=== PATIENT | female | born 1945 | race Caucasian/White ===

== ENCOUNTER 2016-09-24 21:39 | Inpatient (IN) | payer MEDICARE, OTHER ==
[~2016-09-24] VITALS: Ht 175.3 cm; Wt 101.7 kg
[~2016-09-24 21:39] MED LIST: CLON-364 PO; CYMBALTA PO; DILT360C25 PO; HYDROCHLOROTHIAZIDE PO; LISI1TAB5 PO; LOSA50TA6 PO; MELO-190 PO; OXYC-229 PO; PERCOCET PO; POTASSIUM PEG; WELLBUTRIN PO
[2016-09-24] MEDS ORDERED: PANTOPRAZOLE 80 MG in SODIUM CHLORIDE 0.9% 100 ML IV SCH (21:50)
[2016-09-24] MEDS ORDERED: PANTOPRAZOLE 40 MG IV IVPush ONE (22:00)
[2016-09-24] MEDS ORDERED: PLEASE ENTER ALLERGIES MC SCH ×2 (22:00)
[2016-09-24] MEDS ORDERED: SODIUM CHLORIDE 0.9% 1,000ML IVBOLUS ONE (22:00)
[2016-09-24] MEDS ORDERED: SODIUM CHLORIDE FLUSH 10ML SYR IVF ONE (22:00)
[2016-09-24] MEDS ORDERED: ONDANSETRON 2MG/ML, 2ML IVPush ONE (22:00)
[2016-09-24] MEDS ORDERED: PLEASE ENTER HEIGHT AND WEIGHT MC SCH (22:00)
[2016-09-24] MEDS ORDERED: HYDROmorphone 1 MG/ML, 1ML IV ONE (22:00)
[2016-09-24] MEDS ORDERED: PANTOPRAZOLE 40 MG IV ONE (22:22)
[2016-09-24 22:24] LABS: HEMATOCRIT 32.1 % (34.6-47.8); HEMOGLOBIN 10.6 g/dL (11.7-16.4)
[2016-09-24] MEDS ORDERED: MORPHINE SULFATE 4 MG/ML, 1ML IVPush PRN (22:30)
[2016-09-24 22:31] LABS: ASPARTATE AMINO TRANSFERASE 13 U/L (15-37); BLOOD UREA NITROGEN 15 mg/dL (7-18)
[2016-09-24] MEDS ORDERED: ONDANSETRON 2MG/ML, 2ML ONE (22:43)
[2016-09-24] MEDS ORDERED: HYDROmorphone 1 MG/ML, 1ML ONE (22:43)
[2016-09-24] MEDS ORDERED: CARV3.122 PO (23:10)
[2016-09-24] MEDS ORDERED: POTA20TA91 PO (23:10)
[2016-09-24] MEDS ORDERED: CITA20TA9 PO (23:10)
[2016-09-24] MEDS ORDERED: QUET100T4 PO (23:10)
[2016-09-24] MEDS ORDERED: LOSA1TAB17 PO (23:10)
[2016-09-24] MEDS ORDERED: BUPR150T6 PO (23:10)
[2016-09-24] MEDS ORDERED: CYAN500L PO (23:13)
[2016-09-24] MEDS ORDERED: NAPR500T8 PO (23:13)
[2016-09-25] MEDS ORDERED: ACETAMINOPHEN 325 MG TABLET PO PRN
[2016-09-25] MEDS ORDERED: PROMETHAZINE 25 MG/ML, 1ML IM PRN
[2016-09-25] MEDS ORDERED: BISACODYL 10 MG SUPP PR PRN
[2016-09-25] MEDS ORDERED: ONDANSETRON 2MG/ML, 2ML IVPush PRN
[2016-09-25] MEDS ORDERED: maalox/diphenh/lido/sucralfate 5 ML PO PRN (01:00)
[2016-09-25] MEDS: morphine SULFATE 10 MG/ML, 1ML IVPush PRN ×5 (01:08→16:54)
[2016-09-25] MEDS: NS + 20MEQ KCL 1,000 ML IV SCH ×3 (01:09→19:35)
[2016-09-25 04:25] LABS: HEMATOCRIT 28.9 % (34.6-47.8); HEMOGLOBIN 9.6 g/dL (11.7-16.4); WHITE BLOOD COUNT 11.2 x10^3/uL (3.4-10)
[2016-09-25 04:33] LABS: BLOOD UREA NITROGEN 14 mg/dL (7-18)
[2016-09-25] MEDS ORDERED: OXYcodone IR 5MG TABLET PO PRN (08:00)
[2016-09-25] MEDS: PANTOPRAZOLE 80 MG in SODIUM CHLORIDE 0.9% 100 ML IV SCH ×2 (08:04)
[2016-09-25] MEDS: CARVEDILOL 3.125 MG TABLET PO SCH ×2 (08:13→21:32)
[2016-09-25] MEDS: CITALOPRAM 20 MG TABLET PO SCH (08:13)
[2016-09-25] MEDS: QUETIAPINE 100MG TABLET PO SCH (08:13)
[2016-09-25] MEDS: CYANOCOBALAMIN 1,000 MCG TABLET PO SCH (08:14)
[2016-09-25] MEDS ORDERED: PRAM1.5T7 PO (08:22)
[2016-09-25] MEDS ORDERED: BUPROPION HCL 450 MG PO SCH (09:00)
[2016-09-25] MEDS ORDERED: METOPROLOL 1 MG/ML, 5ML ONE (11:09)
[2016-09-25 11:27] LABS: HEMOGLOBIN 9.2 g/dL (11.7-16.4); WHITE BLOOD COUNT 12.9 x10^3/uL (3.4-10)
[2016-09-25] MEDS ORDERED: METOPROLOL 1 MG/ML, 5ML IVPush ONE (11:30)
[2016-09-25] MEDS ORDERED: ADENOSINE 6 MG/2 ML ONE (12:51)
[2016-09-25] MEDS ORDERED: PANTOPRAZOLE 80 MG in SODIUM CHLORIDE 0.9% 100 ML IV SCH ×2 (13:30→21:00)
[2016-09-25 13:41] LABS: IS PT STATUS REG ER OR PRE ER? NO
[2016-09-25] MEDS: ORAJEL 7GM TUBE MM PRN (15:15)
[2016-09-25] MEDS ORDERED: ADENOSINE 6 MG/2 ML IVPush ONE (15:30)
[2016-09-25] MEDS: PRAMIPEXOLE 0.5MG TABLET PO SCH (16:57)
[2016-09-25] MEDS: MOVIPREP POWDER 1 PREP KIT PO SCH (16:57)
[2016-09-25] MEDS ORDERED: HYDROmorphone 1 MG/ML, 1ML IV PRN (19:30)
[2016-09-25 19:42] LABS: IS PT STATUS REG ER OR PRE ER? NO
[2016-09-25] MEDS: HYDROCHLOROTHIAZIDE 25 MG TABLET PO SCH (21:32)
[2016-09-25] MEDS: LOSARTAN 50MG TABLET PO SCH (21:33)
[2016-09-26] MEDS ORDERED: ALBUTEROL SULFATE 2.5 MG/3 ML NPPB PRN ×2 (00:30→20:30)
[2016-09-26] MEDS ORDERED: HYDROmorphone 1 MG/ML, 1ML IV PRN ×3 (01:30→20:30)
[2016-09-26] MEDS ORDERED: DILTIAZEM 5 MG/ML, 5ML IVPush ONE (02:30)
[2016-09-26] MEDS ORDERED: MAGNESIUM SULFATE PMX 2GM/50ML 50 ML IV ONE (02:30)
[2016-09-26] MEDS: MOVIPREP POWDER 1 PREP KIT PO SCH (04:02)
[2016-09-26] MEDS: NS + 20MEQ KCL 1,000 ML IV SCH ×2 (04:21→18:27)
[2016-09-26 04:29] LABS: ASPARTATE AMINO TRANSFERASE 6 U/L (15-37); BLOOD UREA NITROGEN 12 mg/dL (7-18)
[2016-09-26 04:30] LABS: HEMATOCRIT 24.2 % (34.6-47.8); HEMOGLOBIN 7.9 g/dL (11.7-16.4)
[2016-09-26] MEDS ORDERED: PROPOFOL 10 MG/ML, 50ML ONE (07:39)
[2016-09-26 07:59] VITALS: BP 118/55
[2016-09-26] MEDS ORDERED: FENTANYL PF 250 MCG/5ML ONE (08:16)
[2016-09-26] MEDS ORDERED: MIDAZOLAM 1 MG/ML, 2ML ONE (08:16)
[2016-09-26] MEDS ORDERED: POTASSIUM CHLORIDE 20 MEQ TAB.ER.PRT PO ONE (08:30)
[2016-09-26] MEDS ORDERED: METOCLOPRAMIDE 5 MG/ML, 2ML IV PRN (09:00)
[2016-09-26] MEDS ORDERED: ONDANSETRON 2MG/ML, 2ML IVPush PRN ×2 (09:00→20:30)
[2016-09-26] MEDS: BUPROPION HCL 450 MG HOMEMEDPO SCH (09:00)
[2016-09-26] MEDS ORDERED: hydrALAzine 20 MG/ML, 1ML IV PRN ×2 (09:00→20:30)
[2016-09-26] MEDS ORDERED: ACETAMINOPHEN 325 MG TABLET PO PRN (09:00)
[2016-09-26] MEDS ORDERED: FENTANYL PF 100 MCG/2ML IV PRN ×2 (09:00→20:30)
[2016-09-26] MEDS ORDERED: OXYcodone 5 MG/5 ML ORAL.SOL UDC PO PRN (09:00)
[2016-09-26] MEDS ORDERED: LABETALOL 5MG/ML, 20ML IV PRN ×2 (09:00→20:30)
[2016-09-26] MEDS: ORAJEL 7GM TUBE MM PRN (09:57)
[2016-09-26] MEDS: CITALOPRAM 20 MG TABLET PO SCH (10:04)
[2016-09-26] MEDS: CARVEDILOL 3.125 MG TABLET PO SCH ×2 (10:05→20:39)
[2016-09-26] MEDS: PRAMIPEXOLE 0.5MG TABLET PO SCH (10:06)
[2016-09-26] MEDS: QUETIAPINE 100MG TABLET PO SCH (10:07)
[2016-09-26] MEDS: CYANOCOBALAMIN 1,000 MCG TABLET PO SCH (10:07)
[2016-09-26 10:51] LABS: HIV 1&2 ANTIBODY SCREEN Nonreactive (Nonreactive); HIV-1 p24 ANTIGEN Nonreactive (Nonreactive)
[2016-09-26] MEDS ORDERED: LIDOCAINE/PRILOCAINE CRM W/TEG 5GM TP PRN (11:30)
[2016-09-26] MEDS ORDERED: ACYCLOVIR 1,000 MG in SODIUM CHLORIDE 0.9% 100 ML IV SCH (12:00)
[2016-09-26] MEDS: ACYCLOVIR 1,000 MG in SODIUM CHLORIDE 0.9% 250 ML IV SCH ×2 (12:34→20:39)
[2016-09-26 14:00] VITALS: BP 116/70
[2016-09-26] MEDS: morphine SULFATE 10 MG/ML, 1ML IVPush PRN ×2 (16:34→20:41)
[2016-09-26 19:46] VITALS: BP 150/64
[2016-09-26] MEDS ORDERED: MORPHINE SULFATE 4 MG/ML, 1ML ONE (20:28)
[2016-09-26] MEDS ORDERED: BISACODYL 10 MG SUPP PR PRN (20:30)
[2016-09-26 20:38] VITALS: BP 126/55
[2016-09-26] MEDS: HYDROCHLOROTHIAZIDE 25 MG TABLET PO SCH (20:39)
[2016-09-26] MEDS: LOSARTAN 50MG TABLET PO SCH (20:40)
[2016-09-27 00:28] VITALS: BP 138/64
[2016-09-27] MEDS: morphine SULFATE 10 MG/ML, 1ML IVPush PRN ×3 (03:50→19:53)
[2016-09-27] MEDS: maalox/diphenh/lido/sucralfate 5 ML PO PRN ×3 (05:13→23:01)
[2016-09-27] MEDS: ACYCLOVIR 1,000 MG in SODIUM CHLORIDE 0.9% 250 ML IV SCH ×3 (05:13→23:01)
[2016-09-27] MEDS: OXYcodone IR 5MG TABLET PO PRN (05:14)
[2016-09-27 07:05] VITALS: BP 113/56
[2016-09-27] MEDS: NS + 20MEQ KCL 1,000 ML IV SCH (08:00)
[2016-09-27] MEDS: BUPROPION HCL 450 MG HOMEMEDPO SCH (08:56)
[2016-09-27] MEDS: CYANOCOBALAMIN 1,000 MCG TABLET PO SCH (08:57)
[2016-09-27] MEDS: PRAMIPEXOLE 0.5MG TABLET PO SCH (08:57)
[2016-09-27] MEDS: QUETIAPINE 100MG TABLET PO SCH (08:58)
[2016-09-27] MEDS: CITALOPRAM 20 MG TABLET PO SCH (08:58)
[2016-09-27] MEDS: CARVEDILOL 3.125 MG TABLET PO SCH ×2 (08:58→21:14)
[2016-09-27 11:01] LABS: HEMATOCRIT 23.1 % (34.6-47.8); HEMOGLOBIN 7.8 g/dL (11.7-16.4)
[2016-09-27] MEDS ORDERED: MORPHINE SULFATE 4 MG/ML, 1ML ONE ×2 (11:50→19:47)
[2016-09-27 12:54] VITALS: BP 129/54
[2016-09-27 18:28] LABS: HEMOGLOBIN 7.4 g/dL (11.7-16.4)
[2016-09-27 18:33] LABS: HEMATOCRIT 22.8 % (34.6-47.8)
[2016-09-27 20:00] VITALS: BP 117/63
[2016-09-27] MEDS: LOSARTAN 50MG TABLET PO SCH (21:14)
[2016-09-27] MEDS: HYDROCHLOROTHIAZIDE 25 MG TABLET PO SCH (21:14)
[2016-09-27] MEDS ORDERED: METOPROLOL 1 MG/ML, 5ML IVPush ONE (23:30)
[2016-09-28 01:23] LABS: HEMATOCRIT 26.4 % (34.6-47.8); HEMOGLOBIN 8.6 g/dL (11.7-16.4)
[2016-09-28] MEDS: NS + 20MEQ KCL 1,000 ML IV SCH ×2 (01:27→14:40)
[2016-09-28 02:00] VITALS: BP 136/62
[2016-09-28 02:06] LABS: HSV 1 IGG TYPE SPECIFIC <0.91 index (0.00-0.90)
[2016-09-28] MEDS ORDERED: MORPHINE SULFATE 4 MG/ML, 1ML ONE ×2 (04:04→19:36)
[2016-09-28] MEDS: morphine SULFATE 10 MG/ML, 1ML IVPush PRN ×2 (04:07→19:40)
[2016-09-28 05:43] LABS: BLOOD UREA NITROGEN 7 mg/dL (7-18); HEMOGLOBIN 7.7 g/dL (11.7-16.4); WHITE BLOOD COUNT 11.2 x10^3/uL (3.4-10)
[2016-09-28 05:47] LABS: ASPARTATE AMINO TRANSFERASE 10 U/L (15-37); HEMATOCRIT 22.8 % (34.6-47.8)
[2016-09-28] MEDS: ACYCLOVIR 1,000 MG in SODIUM CHLORIDE 0.9% 250 ML IV SCH ×3 (06:22→23:25)
[2016-09-28 07:11] VITALS: BP 122/60
[2016-09-28] MEDS: maalox/diphenh/lido/sucralfate 5 ML PO PRN (08:38)
[2016-09-28] MEDS: CITALOPRAM 20 MG TABLET PO SCH (08:40)
[2016-09-28] MEDS: QUETIAPINE 100MG TABLET PO SCH (08:40)
[2016-09-28] MEDS: CARVEDILOL 3.125 MG TABLET PO SCH ×2 (08:40→19:40)
[2016-09-28] MEDS: PRAMIPEXOLE 0.5MG TABLET PO SCH (08:40)
[2016-09-28] MEDS: CYANOCOBALAMIN 1,000 MCG TABLET PO SCH (08:41)
[2016-09-28] MEDS: BUPROPION HCL 450 MG HOMEMEDPO SCH (08:43)
[2016-09-28] MEDS ORDERED: SODIUM CHLORIDE NASAL SPRAY 45ML BOTTLE NAS PRN (09:00)
[2016-09-28 14:55] VITALS: BP 113/80
[2016-09-28 16:07] LABS: CMV QUANT DNA PCR BLOOD Negative (Negative)
[2016-09-28 18:07] LABS: HERPES SIMPLEX VIRUS-1 DNA PCR Negative (Negative); HERPES SIMPLEX VIRUS-2 DNA PCR Negative (Negative)
[2016-09-28] MEDS: HYDROCHLOROTHIAZIDE 25 MG TABLET PO SCH (19:39)
[2016-09-28] MEDS: LOSARTAN 50MG TABLET PO SCH (19:40)
[2016-09-28 20:00] VITALS: BP 137/72
[2016-09-28 23:06] LABS: ABSOLUTE CD 4 HELPER 1073 /uL (359-1519); HEMATOCRIT 23.9 % (34.0-46.6); HEMOGLOBIN 7.7 g/dL (11.1-15.9); IMMATURE GRANULOCYTES 1 % (.); MCH 30.8 pg (26.6-33.0); MCHC 32.2 g/dL (31.5-35.7); MCV 96 fL (79-97); MONOCYTES 9 % (.); NEUTROPHILS 71 % (.); PLATELETS 368 x10E3/uL (150-379); RDW 14.1 % (12.3-15.4); WBC 11.3 x10E3/uL (3.4-10.8)
[2016-09-29] MEDS: NS + 20MEQ KCL 1,000 ML IV SCH ×3 (02:18→21:00)
[2016-09-29] MEDS: maalox/diphenh/lido/sucralfate 5 ML PO PRN ×4 (02:23→22:53)
[2016-09-29 02:33] VITALS: BP 127/75
[2016-09-29] MEDS ORDERED: MORPHINE SULFATE 4 MG/ML, 1ML ONE (04:38)
[2016-09-29] MEDS: morphine SULFATE 10 MG/ML, 1ML IVPush PRN ×3 (04:41→23:00)
[2016-09-29] MEDS: ACYCLOVIR 1,000 MG in SODIUM CHLORIDE 0.9% 250 ML IV SCH ×2 (06:03→18:30)
[2016-09-29 06:10] LABS: HEMATOCRIT 23.4 % (34.6-47.8); HEMOGLOBIN 7.8 g/dL (11.7-16.4); WHITE BLOOD COUNT 11.5 x10^3/uL (3.4-10)
[2016-09-29 06:19] LABS: BLOOD UREA NITROGEN 6 mg/dL (7-18)
[2016-09-29 07:00] VITALS: BP 143/67
[2016-09-29] MEDS: OXYcodone IR 5MG TABLET PO PRN ×2 (08:56→18:30)
[2016-09-29] MEDS: CITALOPRAM 20 MG TABLET PO SCH (08:56)
[2016-09-29] MEDS: CYANOCOBALAMIN 1,000 MCG TABLET PO SCH (08:57)
[2016-09-29] MEDS: QUETIAPINE 100MG TABLET PO SCH (08:57)
[2016-09-29] MEDS: CARVEDILOL 3.125 MG TABLET PO SCH ×2 (08:57→22:51)
[2016-09-29] MEDS: PHENOL THROAT SPRAY BOTTLE MM PRN ×2 (08:57→22:53)
[2016-09-29] MEDS: PRAMIPEXOLE 0.5MG TABLET PO SCH (08:57)
[2016-09-29] MEDS: BUPROPION HCL 450 MG HOMEMEDPO SCH (08:58)
[2016-09-29] MEDS ORDERED: SODIUM CHLORIDE 0.9%, 500ML IVBOLUS ONE (14:30)
[2016-09-29 17:05] VITALS: BP 148/69
[2016-09-29 20:01] VITALS: BP 101/62
[2016-09-29] MEDS: HYDROCHLOROTHIAZIDE 25 MG TABLET PO SCH (22:51)
[2016-09-29] MEDS: LOSARTAN 50MG TABLET PO SCH (22:52)
[2016-09-30 01:52] VITALS: BP 116/69
[2016-09-30] MEDS: PHENOL THROAT SPRAY BOTTLE MM PRN ×2 (02:40→10:05)
[2016-09-30] MEDS: maalox/diphenh/lido/sucralfate 5 ML PO PRN (02:40)
[2016-09-30] MEDS: ACYCLOVIR 1,000 MG in SODIUM CHLORIDE 0.9% 250 ML IV SCH ×3 (02:42→20:12)
[2016-09-30] MEDS: ACETAMINOPHEN 325 MG TABLET PO PRN (04:39)
[2016-09-30 05:37] LABS: HEMATOCRIT 23.4 % (34.6-47.8); HEMOGLOBIN 7.8 g/dL (11.7-16.4); WHITE BLOOD COUNT 12.4 x10^3/uL (3.4-10)
[2016-09-30 05:48] LABS: ASPARTATE AMINO TRANSFERASE 10 U/L (15-37); BLOOD UREA NITROGEN 13 mg/dL (7-18)
[2016-09-30] MEDS: NS + 20MEQ KCL 1,000 ML IV SCH ×2 (06:07→21:30)
[2016-09-30] MEDS: NYSTATIN 500,000 UNITS/5 ML UDC PO SCH ×4 (06:07→20:20)
[2016-09-30] MEDS: morphine SULFATE 10 MG/ML, 1ML IVPush PRN ×2 (06:58→11:53)
[2016-09-30 07:00] VITALS: BP 100/56
[2016-09-30] MEDS: CYANOCOBALAMIN 1,000 MCG TABLET PO SCH (08:55)
[2016-09-30] MEDS: CARVEDILOL 3.125 MG TABLET PO SCH ×2 (08:55→20:22)
[2016-09-30] MEDS: CITALOPRAM 20 MG TABLET PO SCH (08:55)
[2016-09-30] MEDS: PRAMIPEXOLE 0.5MG TABLET PO SCH (08:56)
[2016-09-30] MEDS: BUPROPION HCL 450 MG HOMEMEDPO SCH (08:56)
[2016-09-30] MEDS: QUETIAPINE 100MG TABLET PO SCH (08:56)
[2016-09-30] MEDS ORDERED: MORPHINE SULFATE 4 MG/ML, 1ML ONE (11:50)
[2016-09-30] MEDS ORDERED: NS + 20MEQ KCL 1,000 ML IV SCH (12:30)
[2016-09-30 13:13] VITALS: BP 138/68
[2016-09-30 18:47] VITALS: BP 105/62
[2016-09-30] MEDS: LOSARTAN 50MG TABLET PO SCH (20:21)
[2016-09-30] MEDS: HYDROCHLOROTHIAZIDE 25 MG TABLET PO SCH (20:21)
[2016-10-01 01:00] VITALS: BP 122/51
[2016-10-01] MEDS: PHENOL THROAT SPRAY BOTTLE MM PRN ×2 (03:34→05:34)
[2016-10-01] MEDS: ACYCLOVIR 1,000 MG in SODIUM CHLORIDE 0.9% 250 ML IV SCH ×3 (04:48→20:43)
[2016-10-01] MEDS: maalox/diphenh/lido/sucralfate 5 ML PO PRN (06:35)
[2016-10-01 07:05] VITALS: BP 133/70
[2016-10-01] MEDS: OXYcodone IR 5MG TABLET PO PRN ×2 (09:10→20:42)
[2016-10-01] MEDS: QUETIAPINE 100MG TABLET PO SCH (09:11)
[2016-10-01] MEDS: CITALOPRAM 20 MG TABLET PO SCH (09:11)
[2016-10-01] MEDS: CARVEDILOL 3.125 MG TABLET PO SCH ×2 (09:12→20:45)
[2016-10-01] MEDS: NYSTATIN 500,000 UNITS/5 ML UDC PO SCH ×3 (09:13→20:46)
[2016-10-01] MEDS: PRAMIPEXOLE 0.5MG TABLET PO SCH (09:13)
[2016-10-01] MEDS: BUPROPION HCL 450 MG HOMEMEDPO SCH (09:14)
[2016-10-01] MEDS: CYANOCOBALAMIN 1,000 MCG TABLET PO SCH (09:14)
[2016-10-01] MEDS: NS + 20MEQ KCL 1,000 ML IV SCH ×2 (11:48→20:00)
[2016-10-01 12:35] VITALS: BP 128/67
[2016-10-01] MEDS ORDERED: BENZOCAINE 20% SPRAY 0.5ML TP ONE (14:30)
[2016-10-01] MEDS ORDERED: DIAZEPAM 5 MG/ML, 10ML VIAL IV ONE (16:30)
[2016-10-01 19:58] VITALS: BP 124/70
[2016-10-01] MEDS: LOSARTAN 50MG TABLET PO SCH (20:45)
[2016-10-01] MEDS: HYDROCHLOROTHIAZIDE 25 MG TABLET PO SCH (20:46)
[2016-10-02] MEDS: NS + 20MEQ KCL 1,000 ML IV SCH ×2 (00:25→12:18)
[2016-10-02 03:18] VITALS: BP 123/73
[2016-10-02] MEDS: ACYCLOVIR 1,000 MG in SODIUM CHLORIDE 0.9% 250 ML IV SCH ×3 (03:29→20:15)
[2016-10-02 06:18] LABS: WHITE BLOOD COUNT 9.4 x10^3/uL (3.4-10)
[2016-10-02 06:21] LABS: HEMATOCRIT 20.3 % (34.6-47.8); HEMOGLOBIN 6.7 g/dL (11.7-16.4)
[2016-10-02 08:04] VITALS: BP 142/71
[2016-10-02] MEDS: PHENOL THROAT SPRAY BOTTLE MM PRN (08:12)
[2016-10-02] MEDS: ORAJEL 7GM TUBE MM PRN (08:12)
[2016-10-02] MEDS: OXYcodone IR 5MG TABLET PO PRN ×3 (08:12→20:35)
[2016-10-02 10:28] VITALS: BP 138/60
[2016-10-02 10:49] VITALS: BP 125/60
[2016-10-02] MEDS: QUETIAPINE 100MG TABLET PO SCH (12:18)
[2016-10-02] MEDS: CITALOPRAM 20 MG TABLET PO SCH (12:18)
[2016-10-02] MEDS: CARVEDILOL 3.125 MG TABLET PO SCH ×2 (12:19→21:27)
[2016-10-02] MEDS: PRAMIPEXOLE 0.5MG TABLET PO SCH (12:20)
[2016-10-02] MEDS: BUPROPION HCL 450 MG HOMEMEDPO SCH (12:20)
[2016-10-02] MEDS: NYSTATIN 500,000 UNITS/5 ML UDC PO SCH ×3 (12:20→21:27)
[2016-10-02] MEDS: CYANOCOBALAMIN 1,000 MCG TABLET PO SCH (12:20)
[2016-10-02 13:44] VITALS: BP 135/60
[2016-10-02] MEDS: SODIUM CHLORIDE 0.9% 1,000 ML IV SCH (18:00)
[2016-10-02 19:25] VITALS: BP 136/66
[2016-10-02 20:27] LABS: HEMATOCRIT 24.6 % (34.6-47.8); HEMOGLOBIN 7.9 g/dL (11.7-16.4)
[2016-10-02] MEDS: PRAMOXINE/ZINC OXIDE 28GM TP PRN (21:26)
[2016-10-02] MEDS: LOSARTAN 50MG TABLET PO SCH (21:28)
[2016-10-02] MEDS: HYDROCHLOROTHIAZIDE 25 MG TABLET PO SCH (21:28)
[2016-10-03 02:30] VITALS: BP 128/71
[2016-10-03] MEDS: ACYCLOVIR 1,000 MG in SODIUM CHLORIDE 0.9% 250 ML IV SCH ×3 (04:38→20:40)
[2016-10-03 05:04] LABS: HEMATOCRIT 24.3 % (34.6-47.8); HEMOGLOBIN 7.9 g/dL (11.7-16.4); WHITE BLOOD COUNT 9.1 x10^3/uL (3.4-10)
[2016-10-03 05:08] LABS: BLOOD UREA NITROGEN 16 mg/dL (7-18)
[2016-10-03 07:22] VITALS: BP 144/68
[2016-10-03] MEDS: NYSTATIN 500,000 UNITS/5 ML UDC PO SCH ×3 (08:55→20:40)
[2016-10-03] MEDS: PRAMIPEXOLE 0.5MG TABLET PO SCH (08:55)
[2016-10-03] MEDS: OXYcodone IR 5MG TABLET PO PRN ×2 (08:55→21:25)
[2016-10-03] MEDS: CYANOCOBALAMIN 1,000 MCG TABLET PO SCH (08:56)
[2016-10-03] MEDS: CARVEDILOL 3.125 MG TABLET PO SCH ×2 (08:56→20:41)
[2016-10-03] MEDS: CITALOPRAM 20 MG TABLET PO SCH (08:56)
[2016-10-03] MEDS: QUETIAPINE 100MG TABLET PO SCH (08:56)
[2016-10-03] MEDS: BUPROPION HCL 450 MG HOMEMEDPO SCH (08:56)
[2016-10-03] MEDS: SODIUM CHLORIDE 0.9% 1,000 ML IV SCH ×2 (09:00→20:46)
[2016-10-03] MEDS ORDERED: SODIUM CHLORIDE 0.9% 1,000 ML IV SCH (10:00)
[2016-10-03] MEDS ORDERED: MAGNESIUM SULFATE PMX 2GM/50ML 50 ML IV ONE (11:00)
[2016-10-03] MEDS: maalox/diphenh/lido/sucralfate 5 ML PO PRN (12:27)
[2016-10-03 12:50] VITALS: BP 105/63
[2016-10-03] MEDS ORDERED: BISACODYL 10 MG SUPP PR PRN (20:30)
[2016-10-03] MEDS ORDERED: ONDANSETRON 2MG/ML, 2ML IVPush PRN (20:30)
[2016-10-03] MEDS: LIDOCAINE/PRILOCAINE CRM W/TEG 5GM TP PRN (20:40)
[2016-10-03] MEDS: PRAMOXINE/ZINC OXIDE 28GM TP PRN (20:40)
[2016-10-03] MEDS: LOSARTAN 50MG TABLET PO SCH (20:41)
[2016-10-03] MEDS: HYDROCHLOROTHIAZIDE 25 MG TABLET PO SCH (20:44)
[2016-10-03 20:45] VITALS: BP 133/60
[2016-10-04 02:30] VITALS: BP 130/71
[2016-10-04] MEDS: ACYCLOVIR 1,000 MG in SODIUM CHLORIDE 0.9% 250 ML IV SCH ×3 (03:56→20:14)
[2016-10-04 05:16] VITALS: BP 128/63
[2016-10-04 05:45] LABS: HEMATOCRIT 23.2 % (34.6-47.8); HEMOGLOBIN 7.8 g/dL (11.7-16.4); WHITE BLOOD COUNT 9.7 x10^3/uL (3.4-10)
[2016-10-04 06:48] LABS: ASPARTATE AMINO TRANSFERASE 30 U/L (15-37); BLOOD UREA NITROGEN 15 mg/dL (7-18)
[2016-10-04 06:56] VITALS: BP 145/76
[2016-10-04] MEDS: CARVEDILOL 3.125 MG TABLET PO SCH ×2 (08:58→20:16)
[2016-10-04] MEDS: OXYcodone IR 5MG TABLET PO PRN ×3 (08:58→18:26)
[2016-10-04] MEDS: CITALOPRAM 20 MG TABLET PO SCH (08:58)
[2016-10-04] MEDS: PRAMIPEXOLE 0.5MG TABLET PO SCH (08:58)
[2016-10-04] MEDS: NYSTATIN 500,000 UNITS/5 ML UDC PO SCH ×3 (08:58→20:16)
[2016-10-04] MEDS: QUETIAPINE 100MG TABLET PO SCH (08:59)
[2016-10-04] MEDS: SODIUM CHLORIDE 0.9% 1,000 ML IV SCH ×2 (09:01→23:10)
[2016-10-04] MEDS: BUPROPION HCL 450 MG HOMEMEDPO SCH (09:01)
[2016-10-04] MEDS: CYANOCOBALAMIN 1,000 MCG TABLET PO SCH (09:05)
[2016-10-04] MEDS ORDERED: POTASSIUM CHLORIDE 40 MEQ in SODIUM CHLORIDE 0.9% 500 ML IV ONE (10:30)
[2016-10-04 13:35] VITALS: BP 138/61
[2016-10-04 19:49] VITALS: BP 124/75
[2016-10-04] MEDS: HYDROCHLOROTHIAZIDE 25 MG TABLET PO SCH (20:16)
[2016-10-04] MEDS: LOSARTAN 50MG TABLET PO SCH (20:16)
[2016-10-04] MEDS: PRAMOXINE/ZINC OXIDE 28GM TP PRN (20:17)
[2016-10-04] MEDS: LIDOCAINE/PRILOCAINE CRM W/TEG 5GM TP PRN (20:17)
[2016-10-04] MEDS: PHENOL THROAT SPRAY BOTTLE MM PRN (20:17)
[2016-10-05 02:55] VITALS: BP 144/73
[2016-10-05] MEDS: ACYCLOVIR 1,000 MG in SODIUM CHLORIDE 0.9% 250 ML IV SCH ×3 (03:56→20:11)
[2016-10-05] MEDS: OXYcodone IR 5MG TABLET PO PRN ×4 (04:25→21:30)
[2016-10-05 05:59] LABS: HEMOGLOBIN 7.3 g/dL (11.7-16.4); WHITE BLOOD COUNT 9.8 x10^3/uL (3.4-10)
[2016-10-05 06:02] LABS: BLOOD UREA NITROGEN 11 mg/dL (7-18)
[2016-10-05 06:10] LABS: HEMATOCRIT 21.9 % (34.6-47.8)
[2016-10-05 07:32] VITALS: BP 146/71
[2016-10-05] MEDS: PRAMIPEXOLE 0.5MG TABLET PO SCH (08:25)
[2016-10-05] MEDS: CYANOCOBALAMIN 1,000 MCG TABLET PO SCH (08:25)
[2016-10-05] MEDS: NYSTATIN 500,000 UNITS/5 ML UDC PO SCH ×3 (08:25→20:13)
[2016-10-05] MEDS: CITALOPRAM 20 MG TABLET PO SCH (08:26)
[2016-10-05] MEDS: QUETIAPINE 100MG TABLET PO SCH (08:26)
[2016-10-05] MEDS: CARVEDILOL 3.125 MG TABLET PO SCH ×2 (08:26→20:12)
[2016-10-05] MEDS: BUPROPION HCL 450 MG HOMEMEDPO SCH (08:33)
[2016-10-05 12:21] VITALS: BP 132/54
[2016-10-05] MEDS: DIPHENOXYLATE/ATROPINE TABLET PO SCH ×2 (12:53→20:13)
[2016-10-05] MEDS: maalox/diphenh/lido/sucralfate 5 ML PO PRN (12:53)
[2016-10-05] MEDS: SODIUM CHLORIDE 0.9% 1,000 ML IV SCH (12:56)
[2016-10-05] MEDS: POTASSIUM CHLORIDE 20 MEQ TAB.ER.PRT PO SCH ×2 (13:00→17:08)
[2016-10-05] MEDS ORDERED: MAGNESIUM SULFATE PMX 2GM/50ML 50 ML IV ONE (13:00)
[2016-10-05] MEDS ORDERED: MORPHINE SULFATE 4 MG/ML, 1ML IVPush PRN (15:30)
[2016-10-05] MEDS ORDERED: OMNIPAQUE 350 MG/ML, 100ML BOTTLE ONE (16:43)
[2016-10-05 19:32] VITALS: BP 131/63
[2016-10-05] MEDS: HYDROCHLOROTHIAZIDE 25 MG TABLET PO SCH (20:12)
[2016-10-05] MEDS: LOSARTAN 50MG TABLET PO SCH (20:13)
[2016-10-06 02:02] VITALS: BP 124/57
[2016-10-06] MEDS: ACETAMINOPHEN 325 MG TABLET PO PRN (03:58)
[2016-10-06] MEDS: ACYCLOVIR 1,000 MG in SODIUM CHLORIDE 0.9% 250 ML IV SCH ×3 (03:58→21:26)
[2016-10-06] MEDS: SODIUM CHLORIDE 0.9% 1,000 ML IV SCH (04:00)
[2016-10-06 06:15] LABS: HEMOGLOBIN 7.2 g/dL (11.7-16.4); WHITE BLOOD COUNT 10.2 x10^3/uL (3.4-10)
[2016-10-06 06:20] LABS: BLOOD UREA NITROGEN 11 mg/dL (7-18)
[2016-10-06 07:39] VITALS: BP_SYST 118; BP_SYST 151; BP_DIAS 61; BP_DIAS 70
[2016-10-06] MEDS: POTASSIUM CHLORIDE 20 MEQ TAB.ER.PRT PO SCH ×5 (08:00→21:28)
[2016-10-06] MEDS: CYANOCOBALAMIN 1,000 MCG TABLET PO SCH (09:48)
[2016-10-06] MEDS: PRAMIPEXOLE 0.5MG TABLET PO SCH (09:48)
[2016-10-06] MEDS: NYSTATIN 500,000 UNITS/5 ML UDC PO SCH ×3 (09:48→21:27)
[2016-10-06] MEDS: OXYcodone IR 5MG TABLET PO PRN ×2 (09:48→17:05)
[2016-10-06] MEDS: MAGNESIUM OXIDE 400 MG TABLET PO SCH (09:49)
[2016-10-06] MEDS: QUETIAPINE 100MG TABLET PO SCH (09:49)
[2016-10-06] MEDS: CITALOPRAM 20 MG TABLET PO SCH (09:49)
[2016-10-06] MEDS: CARVEDILOL 3.125 MG TABLET PO SCH ×2 (09:49→21:27)
[2016-10-06] MEDS: DIPHENOXYLATE/ATROPINE TABLET PO SCH ×2 (09:49→21:27)
[2016-10-06] MEDS: BUPROPION HCL 450 MG HOMEMEDPO SCH (09:51)
[2016-10-06 14:30] VITALS: BP 122/76
[2016-10-06] MEDS: LACTOBACILLUS CHEW TABLET PO SCH ×2 (16:46→21:27)
[2016-10-06 20:00] VITALS: BP 150/72
[2016-10-06] MEDS: LOSARTAN 50MG TABLET PO SCH (21:27)
[2016-10-06] MEDS: HYDROCHLOROTHIAZIDE 25 MG TABLET PO SCH (21:28)
[2016-10-07 01:20] VITALS: BP 126/67
[2016-10-07] MEDS: SODIUM CHLORIDE 0.9% 1,000 ML IV SCH (01:30)
[2016-10-07] MEDS: ACYCLOVIR 1,000 MG in SODIUM CHLORIDE 0.9% 250 ML IV SCH ×2 (05:01→14:29)
[2016-10-07] MEDS: OXYcodone IR 5MG TABLET PO PRN ×3 (05:01→16:55)
[2016-10-07 06:45] LABS: WHITE BLOOD COUNT 11.6 x10^3/uL (3.4-10)
[2016-10-07 06:49] LABS: HEMATOCRIT 21.2 % (34.6-47.8)
[2016-10-07 06:58] LABS: BLOOD UREA NITROGEN 11 mg/dL (7-18)
[2016-10-07 07:24] LABS: DIFF TOTAL CELLS COUNTED 100 CELL DIFF
[2016-10-07 07:25] LABS: VERIFY COUNTS? YES
[2016-10-07 07:26] LABS: ANISOCYTOSIS 1+; HYPOCHROMIA 1+
[2016-10-07 08:03] VITALS: BP 129/72
[2016-10-07] MEDS: CARVEDILOL 3.125 MG TABLET PO SCH (08:46)
[2016-10-07] MEDS: MAGNESIUM OXIDE 400 MG TABLET PO SCH (08:46)
[2016-10-07] MEDS: CITALOPRAM 20 MG TABLET PO SCH (08:46)
[2016-10-07] MEDS: LACTOBACILLUS CHEW TABLET PO SCH (08:46)
[2016-10-07] MEDS: PRAMIPEXOLE 0.5MG TABLET PO SCH (08:46)
[2016-10-07] MEDS: NYSTATIN 500,000 UNITS/5 ML UDC PO SCH (08:47)
[2016-10-07] MEDS: CYANOCOBALAMIN 1,000 MCG TABLET PO SCH (08:47)
[2016-10-07] MEDS: BUPROPION HCL 450 MG HOMEMEDPO SCH (09:00)
[2016-10-07] MEDS: QUETIAPINE 100MG TABLET PO SCH (09:06)
[2016-10-07] MEDS: DIPHENOXYLATE/ATROPINE TABLET PO SCH (09:06)
[2016-10-07 10:45] VITALS: BP 125/55
[2016-10-07 11:00] VITALS: BP 126/55
[2016-10-07 12:38] VITALS: BP 115/57
[2016-10-07 14:07] VITALS: BP 132/76
[2016-10-07] MEDS ORDERED: NYST1000 PO (16:03)
[2016-10-07] MEDS ORDERED: ACID1TAB7 PO (16:03)
[2016-10-07] MEDS ORDERED: OXYC5TAB3 PO (16:03)
[2016-10-07] MEDS ORDERED: LIDO30CR TP (16:03)
[2016-10-07] MEDS ORDERED: MAGN400T26 PO (16:03)
[2016-10-07] MEDS ORDERED: ACYC15OI6 IV (16:03)
[2016-10-07] MEDS ORDERED: POTASSIUM CHLORIDE 20 MEQ TAB.ER.PRT PO SCH (17:00)
== END 2016-10-07 18:20 | disposition home or self-care (01) | DRG 391 ==
LOC: ED 22:44 → EDIP 23:00 → SUATTDRO 23:07 → CCU 09-25 00:23 → 4WST 09-26 13:12
PROVIDERS: ATTEND Internal Medicine
PROC: 0DBN8ZX Excision of Sigmoid Colon, Via Natural or Artificial Opening Endoscopic, Diagnostic (ICD-10-PCS; 2016-09-26)
PROC: 0DBK8ZX Excision of Ascending Colon, Via Natural or Artificial Opening Endoscopic, Diagnostic (ICD-10-PCS; principal; 2016-09-26 08:00)
DX: A08.39 Other viral enteritis (principal); G93.41 Metabolic encephalopathy; K92.1 Melena; D62 Acute posthemorrhagic anemia; E44.0 Moderate protein-calorie malnutrition; K63.3 Ulcer of intestine; F05 Delirium due to known physiological condition; I47.1 Supraventricular tachycardia; K57.92 Diverticulitis of intestine, part unspecified, without perforation or abscess without bleeding; A04.7 Enterocolitis due to Clostridium difficile; A60.00 Herpesviral infection of urogenital system, unspecified; D18.1 Lymphangioma, any site; D75.89 Other specified diseases of blood and blood-forming organs; E78.5 Hyperlipidemia, unspecified; E83.42 Hypomagnesemia; E87.6 Hypokalemia; F03.90 Unspecified dementia, unspecified severity, without behavioral disturbance, psychotic disturbance, mood disturbance, and anxiety; F32.9 Major depressive disorder, single episode, unspecified; F41.9 Anxiety disorder, unspecified; G25.81 Restless legs syndrome; K12.0 Recurrent oral aphthae; I11.9 Hypertensive heart disease without heart failure; K21.9 Gastro-esophageal reflux disease without esophagitis; R32 Unspecified urinary incontinence; R62.7 Adult failure to thrive; Z82.49 Family history of ischemic heart disease and other diseases of the circulatory system; Z86.19 Personal history of other infectious and parasitic diseases; Z87.442 Personal history of urinary calculi; Z87.891 Personal history of nicotine dependence; Z90.49 Acquired absence of other specified parts of digestive tract; Z90.710 Acquired absence of both cervix and uterus; Z68.29 Body mass index [BMI] 29.0-29.9, adult; Z88.8 Allergy status to other drugs, medicaments and biological substances
CPT/HCPCS: 36415; 70551; 71010; 74177; 78278; 80048; 80053; 81001; 83735; 84100; 84145; 84484; 85014; 85018; 85025; 85610; 85651; 85730; 86140; 86361; 86644; 86663; 86664; 86665; 86695; 86696; 86703; 86850; 86900; 86923; 87046; 87077; 87081; 87086; 87186; 87252; 87254; 87255; 87271; 87324; 87497; 87529; 87899; 88305; 89055; 93005; 94640; 96365; 96375; J0133; J0153; J1170; J2250; J2405; J2704; J3010; J3360; J3480; J7613; Q9967; A9560; C9113; C9898; G0435; J2270; J3475; J7030; J7040; J7050; P9016

== ENCOUNTER 2016-12-07 14:03 | Day surgery (SDC) | payer MEDICARE, OTHER ==
[2016-12-06 15:56] LABS: HEMOGLOBIN 11.4 g/dL (11.7-16.4); WHITE BLOOD COUNT 15.3 x10^3/uL (3.4-10)
[2016-12-06 16:06] LABS: BLOOD UREA NITROGEN 7 mg/dL (7-18)
[2016-12-06 16:10] LABS: ASPARTATE AMINO TRANSFERASE 12 U/L (15-37)
[~2016-12-07] VITALS: Ht 175.3 cm; Wt 85.0 kg
[~2016-12-07 14:03] MED LIST changes: +ACID1TAB7 PO; +ACYC15OI6 IV; +BUPR150T6 PO; +CARV3.1212 PO; +CARV3.122 PO; +CHOL4POW3 PO; +CITA20TA9 PO; +CYAN500L2 PO; +DRON2.5C PO; +LIDO30CR TP; +LOSA1TAB17 PO; +MAGN400T26 PO; -MELO-190 PO; +MELO7.5T31 PO; +METOCLOPRAMIDE 5 MG/ML, 2ML ONE; +MIRT15TA4 PO; +NAPR500T8 PO; +NYST1000 PO; +ONDA4TAB7 PO; +ONDANSETRON 2MG/ML, 2ML ONE; -OXYC-229 PO; +OXYC-307 PO; +OXYC5CAP2 PO; +OXYC5TAB3 PO; +POTA20TA91 PO; +PRAM0.5T5 PO; +PRAM1.5T7 PO; +PROPOFOL 10 MG/ML, 50ML ONE; +QUET100T4 PO; +VANCOMYCIN LIQUID PO; +vancomycin
[2016-12-07] MEDS ORDERED: LACTATED RINGERS 1,000 ML IV SCH (14:33)
[2016-12-07 14:54] VITALS: BP 118/70
[2016-12-07 15:58] LABS: FECAL DELIVERY METHOD COLONOSCOPY; SAMPLE ISSUED TO: CPAGE
[2016-12-07] MEDS ORDERED: HYDROmorphone 1 MG/ML, 1ML IV PRN (16:30)
[2016-12-07] MEDS ORDERED: METOPROLOL 1 MG/ML, 5ML IV PRN (16:30)
[2016-12-07] MEDS ORDERED: ACETAMINOPHEN 325 MG TABLET PO PRN (16:30)
[2016-12-07] MEDS ORDERED: KETOROLAC 30 MG/1 ML IV PRN (16:30)
[2016-12-07] MEDS ORDERED: PROMETHAZINE 25 MG/ML, 1ML IV PRN (16:30)
[2016-12-07] MEDS ORDERED: LABETALOL 5MG/ML, 20ML IV PRN (16:30)
[2016-12-07] MEDS ORDERED: EPHEDRINE 50 MG/ML, 1ML IVPush PRN (16:30)
[2016-12-07] MEDS ORDERED: hydrALAzine 20 MG/ML, 1ML IV PRN (16:30)
[2016-12-07] MEDS ORDERED: ALBUTEROL SULFATE 2.5 MG/3 ML NPPB PRN (16:30)
[2016-12-07] MEDS ORDERED: HYDROcodone/APAP 7.5-325MG/15ML UDC PO PRN (16:30)
[2016-12-07] MEDS ORDERED: FENTANYL PF 100 MCG/2ML IV PRN (16:30)
[2016-12-07] MEDS ORDERED: MEPERIDINE/PF 25MG/0.5ML IVPush PRN (16:30)
[2016-12-07] MEDS ORDERED: ONDANSETRON 2MG/ML, 2ML IVPush PRN (16:30)
[2016-12-07] MEDS ORDERED: OXYcodone 5 MG/5 ML ORAL.SOL UDC PO PRN (16:30)
== END 2016-12-07 17:15 | disposition home or self-care (01) ==
LOC: OUT 14:03
PROVIDERS: ATTEND Internal Medicine Geriatric Medicine
DX: K51.90 Ulcerative colitis, unspecified, without complications (principal); A04.72 Enterocolitis due to Clostridium difficile, not specified as recurrent; Z98.0 Intestinal bypass and anastomosis status; Z90.49 Acquired absence of other specified parts of digestive tract; F41.9 Anxiety disorder, unspecified; Z87.39 Personal history of other diseases of the musculoskeletal system and connective tissue; I10 Essential (primary) hypertension; Z87.891 Personal history of nicotine dependence
CPT/HCPCS: 36415; 44705; 45380; 80053; 85025; 88305; 93005; J2405; J2704; J2765; J7120

== ENCOUNTER 2017-05-23 14:42 | Emergency (ER) | payer MEDICARE, OTHER ==
[~2017-05-23] VITALS: Ht 175.3 cm; Wt 92.9 kg
[~2017-05-23 14:42] MED LIST changes: -LOSA1TAB17 PO; +LOSA1TAB22 PO; -METOCLOPRAMIDE 5 MG/ML, 2ML ONE; -ONDANSETRON 2MG/ML, 2ML ONE; -PROPOFOL 10 MG/ML, 50ML ONE
[2017-05-23 16:12] LABS: BASOPHILS # (AUTO) 0.02 x10^3/uL (0-0.1); BASOPHILS % (AUTO) 0 % (0-1); EOSINOPHILS # (AUTO) 0.28 x10^3/uL (0-0.4); EOSINOPHILS % (AUTO) 2 % (1-7); LYMPHOCYTES # (AUTO) 2.01 x10^3/uL (1-3.4); LYMPHOCYTES % (AUTO) 17 % (22-44); MD NO; MEAN CORPUSCULAR HEMOGLOBIN 30.3 pg (27.0-34.8); MEAN CORPUSCULAR HGB CONC 33.7 g/dL (32.4-35.8); MEAN CORPUSCULAR VOLUME 89.7 fL (80-100); MEAN PLATELET VOLUME 7.8 fL (7.4-10.4); MONOCYTES # (AUTO) 0.61 x10^3/uL (0.2-0.8); MONOCYTES % (AUTO) 5 % (2-9); NEUTROPHILS # (AUTO) 8.85 x10^3/uL (1.8-6.8); NEUTROPHILS % (AUTO) 75 % (42-75); PLATELET COUNT 497 x10^3/uL (130-400)
[2017-05-23 16:17] LABS: ALBUMIN 3.2 g/dL (3.4-5.0); ANION GAP 9 mmol/L (5-15); CALCIUM 9.7 mg/dL (8.5-10.1); CHLORIDE 108 mmol/L (98-107); CREATININE 0.75 mg/dL (0.55-1.02)
[2017-05-23 16:49] LABS: CULTURE INDICATED? YES; MICROSCOPIC INDICATED
[2017-05-23] MEDS ORDERED: OMNIPAQUE 350 MG/ML, 100ML BOTTLE ONE (17:48)
[2017-05-23 18:57] VITALS: BP 174/74
== END 2017-05-23 19:52 | disposition home or self-care (01) ==
LOC: ED 19:15
DX: R10.12 Left upper quadrant pain (principal); I10 Essential (primary) hypertension; K21.9 Gastro-esophageal reflux disease without esophagitis; E78.5 Hyperlipidemia, unspecified; Z90.710 Acquired absence of both cervix and uterus; Z88.1 Allergy status to other antibiotic agents
CPT/HCPCS: 36415; 74177; 80048; 81001; 82040; 85025; 87086; 99285; Q9967

== ENCOUNTER 2017-05-28 12:17 | Observation (INO) | payer MEDICARE, OTHER ==
[~2017-05-28] VITALS: Ht 175.3 cm; Wt 84.1 kg
[2017-05-28 13:01] LABS: BASOPHILS # (AUTO) 0.08 x10^3/uL (0-0.1); BASOPHILS % (AUTO) 1 % (0-1); EOSINOPHILS # (AUTO) 0.34 x10^3/uL (0-0.4); EOSINOPHILS % (AUTO) 2 % (1-7); LYMPHOCYTES # (AUTO) 2.05 x10^3/uL (1-3.4); LYMPHOCYTES % (AUTO) 15 % (22-44); MD NO; MEAN CORPUSCULAR HEMOGLOBIN 29.6 pg (27.0-34.8); MEAN CORPUSCULAR HGB CONC 33.3 g/dL (32.4-35.8); MEAN CORPUSCULAR VOLUME 88.9 fL (80-100); MEAN PLATELET VOLUME 7.4 fL (7.4-10.4); MONOCYTES # (AUTO) 0.97 x10^3/uL (0.2-0.8); MONOCYTES % (AUTO) 7 % (2-9); NEUTROPHILS # (AUTO) 10.36 x10^3/uL (1.8-6.8); NEUTROPHILS % (AUTO) 75 % (42-75); PLATELET COUNT 549 x10^3/uL (130-400); RED BLOOD COUNT 3.94 x10^6/uL (3.82-5.3); RED CELL DISTRIBUTION WIDTH 13.8 % (9.6-15.2)
[2017-05-28 13:10] LABS: INTERNATIONAL NORMALIZED RATIO 1.04 (0.93-1.1); PROTHROMBIN TIME 10.8 Seconds (9.6-11.5)
[2017-05-28 13:15] LABS: ALANINE AMINOTRANSFERASE 16 U/L (12-78); ALBUMIN 3.3 g/dL (3.4-5.0); ANION GAP 9 mmol/L (5-15); CALCIUM 10.4 mg/dL (8.5-10.1); CHLORIDE 104 mmol/L (98-107); CREATININE 0.87 mg/dL (0.55-1.02)
[2017-05-28 13:18] LABS: ALKALINE PHOSPHATASE 85 U/L (45-117); BILIRUBIN,TOTAL 0.5 mg/dL (0.2-1.0); TOTAL PROTEIN 8.5 g/dL (6.4-8.2)
[2017-05-28] MEDS ORDERED: SODIUM CHLORIDE FLUSH 10ML SYR IVF ONE (14:00)
[2017-05-28] MEDS ORDERED: MORPHINE SULFATE 4 MG/ML, 1ML IVPush PRN (14:00)
[2017-05-28] MEDS ORDERED: SODIUM CHLORIDE 0.9% 1,000ML IVBOLUS ONE (14:00)
[2017-05-28] MEDS ORDERED: MORPHINE SULFATE 4 MG/ML, 1ML ONE ×2 (14:11→21:28)
[2017-05-28] MEDS ORDERED: ATOR20TA PO (15:29)
[2017-05-28] MEDS ORDERED: POTASSIUM CHLORIDE 20 MEQ TAB.ER.PRT PO ONE (15:30)
[2017-05-28] MEDS ORDERED: ENALAPRILAT 1.25 MG/ML, 2ML IVPush PRN (18:30)
[2017-05-28] MEDS ORDERED: ONDANSETRON 2MG/ML, 2ML IVPush PRN (18:30)
[2017-05-28] MEDS ORDERED: LABETALOL 5MG/ML, 20ML IVPush PRN (18:30)
[2017-05-28] MEDS ORDERED: DOCUSATE 100 MG CAPSULE PO PRN (18:30)
[2017-05-28] MEDS ORDERED: ACETAMINOPHEN 325 MG TABLET PO PRN (18:30)
[2017-05-28] MEDS ORDERED: ONDANSETRON ODT 4 MG PO PRN (18:30)
[2017-05-28] MEDS ORDERED: POLYETHYLENE GLYCOL 17 GM PACKET PO PRN (18:30)
[2017-05-28] MEDS ORDERED: POTASSIUM CHLORIDE 20 MEQ TAB.ER.PRT ONE (18:50)
[2017-05-28] MEDS: morphine SULFATE 10 MG/ML, 1ML IVPush PRN (21:37)
[2017-05-28] MEDS: LOSARTAN 50MG TABLET PO SCH (21:40)
[2017-05-28] MEDS: HYDROCHLOROTHIAZIDE 25 MG TABLET PO SCH (21:40)
[2017-05-28] MEDS: ATORVASTATIN 20 MG TABLET PO SCH (21:41)
[2017-05-28] MEDS: MIRTAZAPINE 15 MG TABLET PO SCH (21:41)
[2017-05-28] MEDS: PRAMIPEXOLE 0.5MG TABLET PO SCH (21:41)
[2017-05-28] MEDS: CARVEDILOL 3.125 MG TABLET PO SCH (21:41)
[2017-05-28] MEDS: SODIUM CHLORIDE 0.9% 1,000 ML IV SCH (21:42)
[2017-05-28] MEDS: GUAIFENESIN/DM 200-20MG, 10ML UDC PO PRN (23:25)
[2017-05-29 01:01] VITALS: BP 107/67
[2017-05-29 02:59] LABS: CLOSTRIDIUM DIFFICILE ANTIGEN NEGATIVE; CLOSTRIDIUM DIFFICILE TOXIN NEGATIVE (Negative)
[2017-05-29 03:39] LABS: CULTURE INDICATED? YES; MICROSCOPIC INDICATED
[2017-05-29 05:30] LABS: BASOPHILS # (AUTO) 0.09 x10^3/uL (0-0.1); BASOPHILS % (AUTO) 1 % (0-1); EOSINOPHILS # (AUTO) 0.28 x10^3/uL (0-0.4); EOSINOPHILS % (AUTO) 2 % (1-7); LYMPHOCYTES # (AUTO) 2.11 x10^3/uL (1-3.4); LYMPHOCYTES % (AUTO) 18 % (22-44); MD NO; MEAN CORPUSCULAR HEMOGLOBIN 29.7 pg (27.0-34.8); MEAN CORPUSCULAR HGB CONC 33.7 g/dL (32.4-35.8); MEAN CORPUSCULAR VOLUME 88.3 fL (80-100); MEAN PLATELET VOLUME 7.8 fL (7.4-10.4); MONOCYTES % (AUTO) 8 % (2-9); NEUTROPHILS # (AUTO) 8.49 x10^3/uL (1.8-6.8); NEUTROPHILS % (AUTO) 71 % (42-75); PLATELET COUNT 428 x10^3/uL (130-400); RED BLOOD COUNT 3.25 x10^6/uL (3.82-5.3); RED CELL DISTRIBUTION WIDTH 13.5 % (9.6-15.2)
[2017-05-29] MEDS: GUAIFENESIN/DM 200-20MG, 10ML UDC PO PRN ×2 (05:35→14:31)
[2017-05-29] MEDS: morphine SULFATE 10 MG/ML, 1ML IVPush PRN (05:35)
[2017-05-29 05:45] LABS: CHLORIDE 106 mmol/L (98-107)
[2017-05-29 05:52] LABS: ALANINE AMINOTRANSFERASE 14 U/L (12-78); ALBUMIN 2.5 g/dL (3.4-5.0); ALKALINE PHOSPHATASE 56 U/L (45-117); ANION GAP 9 mmol/L (5-15); BILIRUBIN,TOTAL 0.7 mg/dL (0.2-1.0); CALCIUM 9.1 mg/dL (8.5-10.1); CREATININE 0.64 mg/dL (0.55-1.02); TOTAL PROTEIN 6.7 g/dL (6.4-8.2)
[2017-05-29 06:45] VITALS: BP 123/70
[2017-05-29] MEDS ORDERED: POTASSIUM CHLORIDE 20 MEQ TAB.ER.PRT PO ONE (07:30)
[2017-05-29] MEDS: CARVEDILOL 3.125 MG TABLET PO SCH ×2 (08:13→21:55)
[2017-05-29] MEDS: POTASSIUM CHLORIDE 20 MEQ TAB.ER.PRT PO SCH ×4 (08:13→14:22)
[2017-05-29] MEDS: SODIUM CHLORIDE 0.9% 1,000 ML IV SCH ×2 (08:16→21:00)
[2017-05-29] MEDS ORDERED: MAGNESIUM SULFATE PMX 2GM/50ML 50 ML IV ONE (08:30)
[2017-05-29] MEDS ORDERED: LOPERAMIDE 2 MG CAPSULE PO ONE (11:30)
[2017-05-29 13:05] VITALS: BP 128/76
[2017-05-29 19:04] VITALS: BP 113/65
[2017-05-29] MEDS: PRAMIPEXOLE 0.5MG TABLET PO SCH (21:54)
[2017-05-29] MEDS: HYDROCHLOROTHIAZIDE 25 MG TABLET PO SCH (21:54)
[2017-05-29] MEDS: ATORVASTATIN 20 MG TABLET PO SCH (21:54)
[2017-05-29] MEDS: LOSARTAN 50MG TABLET PO SCH (21:55)
[2017-05-29] MEDS: MIRTAZAPINE 15 MG TABLET PO SCH (21:55)
[2017-05-30 01:10] VITALS: BP 107/60
[2017-05-30] MEDS: LOPERAMIDE 2 MG CAPSULE PO PRN ×2 (03:48→13:14)
[2017-05-30] MEDS: SODIUM CHLORIDE 0.9% 1,000 ML IV SCH (04:39)
[2017-05-30 05:29] LABS: BASOPHILS # (AUTO) 0.06 x10^3/uL (0-0.1); BASOPHILS % (AUTO) 1 % (0-1); EOSINOPHILS % (AUTO) 4 % (1-7); LYMPHOCYTES # (AUTO) 2.33 x10^3/uL (1-3.4); LYMPHOCYTES % (AUTO) 21 % (22-44); MD NO; MEAN CORPUSCULAR HEMOGLOBIN 30.2 pg (27.0-34.8); MEAN CORPUSCULAR HGB CONC 33.7 g/dL (32.4-35.8); MEAN CORPUSCULAR VOLUME 89.7 fL (80-100); MEAN PLATELET VOLUME 8.2 fL (7.4-10.4); MONOCYTES # (AUTO) 1.18 x10^3/uL (0.2-0.8); MONOCYTES % (AUTO) 11 % (2-9); NEUTROPHILS # (AUTO) 7.25 x10^3/uL (1.8-6.8); NEUTROPHILS % (AUTO) 65 % (42-75); PLATELET COUNT 443 x10^3/uL (130-400); RED BLOOD COUNT 3.38 x10^6/uL (3.82-5.3); RED CELL DISTRIBUTION WIDTH 13.6 % (9.6-15.2)
[2017-05-30 05:37] LABS: ANION GAP 9 mmol/L (5-15); CALCIUM 9.3 mg/dL (8.5-10.1); CHLORIDE 106 mmol/L (98-107)
[2017-05-30 05:38] LABS: CREATININE 0.67 mg/dL (0.55-1.02)
[2017-05-30 06:40] VITALS: BP 118/68
[2017-05-30] MEDS ORDERED: SULF1TAB24 PO (07:15)
[2017-05-30] MEDS: CARVEDILOL 3.125 MG TABLET PO SCH (09:04)
[2017-05-30] MEDS: POTASSIUM CHLORIDE 20 MEQ TAB.ER.PRT PO SCH (09:04)
[2017-05-30] MEDS: GUAIFENESIN/DM 200-20MG, 10ML UDC PO PRN (13:10)
== END 2017-05-30 13:41 | disposition home or self-care (01) ==
LOC: ED 14:58 → EDIP 18:02 → 3NE 19:59
PROVIDERS: ADMIT Family Medicine; ATTEND Family Medicine
DX: K92.2 Gastrointestinal hemorrhage, unspecified (principal); E87.6 Hypokalemia; E86.0 Dehydration; E78.5 Hyperlipidemia, unspecified; F32.9 Major depressive disorder, single episode, unspecified; K21.9 Gastro-esophageal reflux disease without esophagitis; N82.3 Fistula of vagina to large intestine; Z87.891 Personal history of nicotine dependence; Z66 Do not resuscitate; Z90.49 Acquired absence of other specified parts of digestive tract
CPT/HCPCS: 36415; 74021; 80048; 80053; 83735; 84100; 85025; 85610; 86850; 86900; 87077; 87086; 87186; 87324; 89055; 96361; 96365; 96366; 96375; 96376; 97161; 97165; 99285; G0378; J2270; J3475; J7030

== ENCOUNTER 2017-06-01 14:17 | Emergency (ER) | payer MEDICARE, OTHER ==
[~2017-06-01] VITALS: Ht 175.3 cm; Wt 85.9 kg
[~2017-06-01 14:17] MED LIST changes: +ATOR20TA PO; +SULF1TAB24 PO
[2017-06-01] MEDS ORDERED: OXYcodone/APAP 5/325MG TABLET ONE (15:14)
[2017-06-01 15:15] LABS: ALANINE AMINOTRANSFERASE 18 U/L (12-78); ALBUMIN 2.8 g/dL (3.4-5.0); ANION GAP 8 mmol/L (5-15); CALCIUM 9.5 mg/dL (8.5-10.1); CHLORIDE 105 mmol/L (98-107); CREATININE 0.66 mg/dL (0.55-1.02)
[2017-06-01 15:18] LABS: ALKALINE PHOSPHATASE 70 U/L (45-117); BILIRUBIN,TOTAL 0.4 mg/dL (0.2-1.0); TOTAL PROTEIN 7.7 g/dL (6.4-8.2)
[2017-06-01 15:22] LABS: BASOPHILS # (AUTO) 0.02 x10^3/uL (0-0.1); BASOPHILS % (AUTO) 0 % (0-1); EOSINOPHILS # (AUTO) 0.22 x10^3/uL (0-0.4); EOSINOPHILS % (AUTO) 2 % (1-7); LYMPHOCYTES # (AUTO) 1.54 x10^3/uL (1-3.4); LYMPHOCYTES % (AUTO) 16 % (22-44); MD NO; MEAN CORPUSCULAR HEMOGLOBIN 29.2 pg (27.0-34.8); MEAN CORPUSCULAR HGB CONC 33.2 g/dL (32.4-35.8); MEAN CORPUSCULAR VOLUME 87.9 fL (80-100); MEAN PLATELET VOLUME 7.7 fL (7.4-10.4); MONOCYTES # (AUTO) 0.66 x10^3/uL (0.2-0.8); MONOCYTES % (AUTO) 7 % (2-9); NEUTROPHILS % (AUTO) 75 % (42-75); PLATELET COUNT 510 x10^3/uL (130-400); RED BLOOD COUNT 3.56 x10^6/uL (3.82-5.3)
[2017-06-01] MEDS ORDERED: OXYcodone/APAP 5/325MG TABLET PO ONE (15:30)
[2017-06-01 17:49] VITALS: BP 136/69
== END 2017-06-01 17:51 | disposition home or self-care (01) ==
LOC: ED 15:49
DX: N30.00 Acute cystitis without hematuria (principal); R19.7 Diarrhea, unspecified; I10 Essential (primary) hypertension; E78.5 Hyperlipidemia, unspecified; K21.9 Gastro-esophageal reflux disease without esophagitis; Z88.1 Allergy status to other antibiotic agents; Z88.8 Allergy status to other drugs, medicaments and biological substances
CPT/HCPCS: 36415; 80053; 85025; 99284

== ENCOUNTER 2017-06-30 11:04 | Inpatient (IN) | payer MEDICARE, OTHER ==
[~2017-06-30] VITALS: Ht 175.3 cm; Wt 91.1 kg
[2017-06-30] MEDS ORDERED: SODIUM CHLORIDE FLUSH 10ML SYR IVF ONE (11:30)
[2017-06-30 12:18] LABS: BASOPHILS # (AUTO) 0.01 x10^3/uL (0-0.1); BASOPHILS % (AUTO) 0 % (0-1); EOSINOPHILS # (AUTO) 0.18 x10^3/uL (0-0.4); EOSINOPHILS % (AUTO) 2 % (1-7); LYMPHOCYTES # (AUTO) 1.13 x10^3/uL (1-3.4); LYMPHOCYTES % (AUTO) 12 % (22-44); MD NO; MEAN CORPUSCULAR HEMOGLOBIN 28.7 pg (27.0-34.8); MEAN CORPUSCULAR VOLUME 86.9 fL (80-100); MEAN PLATELET VOLUME 7.2 fL (7.4-10.4); MONOCYTES % (AUTO) 5 % (2-9); NEUTROPHILS # (AUTO) 7.46 x10^3/uL (1.8-6.8); NEUTROPHILS % (AUTO) 80 % (42-75); PLATELET COUNT 748 x10^3/uL (130-400); RED BLOOD COUNT 3.55 x10^6/uL (3.82-5.3); RED CELL DISTRIBUTION WIDTH 14.9 % (9.6-15.2)
[2017-06-30 12:28] LABS: ALBUMIN 2.3 g/dL (3.4-5.0); ANION GAP 13 mmol/L (5-15); CALCIUM 9.3 mg/dL (8.5-10.1); CHLORIDE 96 mmol/L (98-107)
[2017-06-30 12:33] LABS: ALANINE AMINOTRANSFERASE 24 U/L (12-78); ALKALINE PHOSPHATASE 84 U/L (45-117); BILIRUBIN,TOTAL 0.7 mg/dL (0.2-1.0); CREATININE 1.36 mg/dL (0.55-1.02); TOTAL PROTEIN 7.3 g/dL (6.4-8.2)
[2017-06-30 12:43] LABS: MICROSCOPIC INDICATED
[2017-06-30 12:44] LABS: CULTURE INDICATED? YES
[2017-06-30] MEDS ORDERED: POTASSIUM CHLORIDE 40 MEQ in SODIUM CHLORIDE 0.9% 1,000 ML IV ONE (13:05)
[2017-06-30] MEDS ORDERED: NS + 40MEQ KCL 1,000 ML IV ONE ×2 (13:21→13:30)
[2017-06-30] MEDS ORDERED: MAGNESIUM SULFATE 1 GM in SODIUM CHLORIDE 0.9% 50 ML IV ONE (13:30)
[2017-06-30] MEDS ORDERED: POTASSIUM CHLORIDE 10% 40 MEQ/30 ML UDC PO ONE (13:30)
[2017-06-30] MEDS ORDERED: ONDANSETRON ODT 4 MG ONE (13:46)
[2017-06-30] MEDS ORDERED: NYST15CR2 TP (13:53)
[2017-06-30] MEDS ORDERED: TRAM50TA2 PO (13:53)
[2017-06-30] MEDS ORDERED: MESA0.372 PO (13:56)
[2017-06-30] MEDS ORDERED: ONDANSETRON ODT 4 MG PO ONE (14:00)
[2017-06-30] MEDS ORDERED: SODIUM CHLORIDE FLUSH 10ML SYR IVF PRN (14:00)
[2017-06-30] MEDS ORDERED: ONDANSETRON 2MG/ML, 2ML IVPush PRN (15:00)
[2017-06-30 15:27] VITALS: BP 113/77
[2017-06-30 17:33] LABS: ANION GAP 8 mmol/L (5-15); CALCIUM 9.3 mg/dL (8.5-10.1); CHLORIDE 105 mmol/L (98-107); CREATININE 1.09 mg/dL (0.55-1.02)
[2017-06-30] MEDS: D5%-0.45NACL+KCL 20MEQ 1,000 ML IV SCH (18:08)
[2017-06-30 19:10] VITALS: BP 109/68
[2017-06-30] MEDS ORDERED: POTASSIUM CHLORIDE 20 MEQ TAB.ER.PRT PO ONE (21:00)
[2017-06-30] MEDS: HEPARIN 5,000 UNITS/ML, 1ML SQ SCH (21:00)
[2017-06-30] MEDS ORDERED: CARVEDILOL 3.125 MG TABLET PO SCH (21:00)
[2017-06-30] MEDS: LOSARTAN 50MG TABLET PO SCH (21:47)
[2017-06-30] MEDS: ATORVASTATIN 20 MG TABLET PO SCH (21:48)
[2017-06-30] MEDS: MIRTAZAPINE 15 MG TABLET PO SCH (21:48)
[2017-06-30 22:52] LABS: ANION GAP 9 mmol/L (5-15); CHLORIDE 103 mmol/L (98-107); CREATININE 1.03 mg/dL (0.55-1.02)
[2017-07-01 01:35] VITALS: BP 99/62
[2017-07-01] MEDS: D5%-0.45NACL+KCL 20MEQ 1,000 ML IV SCH ×3 (02:26→23:08)
[2017-07-01 03:44] LABS: ANION GAP 8 mmol/L (5-15); CALCIUM 8.8 mg/dL (8.5-10.1); CHLORIDE 105 mmol/L (98-107); CREATININE 0.95 mg/dL (0.55-1.02)
[2017-07-01 03:58] LABS: BASOPHILS # (AUTO) 0.08 x10^3/uL (0-0.1); BASOPHILS % (AUTO) 1 % (0-1); EOSINOPHILS # (AUTO) 0.36 x10^3/uL (0-0.4); EOSINOPHILS % (AUTO) 4 % (1-7); LYMPHOCYTES # (AUTO) 1.85 x10^3/uL (1-3.4); LYMPHOCYTES % (AUTO) 23 % (22-44); MD NO; MEAN CORPUSCULAR HEMOGLOBIN 28.6 pg (27.0-34.8); MEAN CORPUSCULAR VOLUME 86.7 fL (80-100); MEAN PLATELET VOLUME 7.1 fL (7.4-10.4); MONOCYTES # (AUTO) 0.96 x10^3/uL (0.2-0.8); MONOCYTES % (AUTO) 12 % (2-9); NEUTROPHILS % (AUTO) 60 % (42-75); PLATELET COUNT 673 x10^3/uL (130-400); RED BLOOD COUNT 2.88 x10^6/uL (3.82-5.3); RED CELL DISTRIBUTION WIDTH 14.9 % (9.6-15.2)
[2017-07-01 07:17] LABS: ANION GAP 6 mmol/L (5-15); CALCIUM 8.9 mg/dL (8.5-10.1); CHLORIDE 107 mmol/L (98-107)
[2017-07-01] MEDS: MESALAMINE 0.375 GM PO SCH (08:41)
[2017-07-01] MEDS: POTASSIUM CHLORIDE 20 MEQ TAB.ER.PRT PO SCH (08:41)
[2017-07-01] MEDS: HYDROCHLOROTHIAZIDE 25 MG TABLET PO SCH ×2 (08:41→21:00)
[2017-07-01] MEDS: HEPARIN 5,000 UNITS/ML, 1ML SQ SCH ×2 (08:42→21:00)
[2017-07-01 10:02] VITALS: BP 109/69
[2017-07-01 11:36] LABS: ANION GAP 9 mmol/L (5-15); CALCIUM 8.7 mg/dL (8.5-10.1); CHLORIDE 104 mmol/L (98-107)
[2017-07-01 14:00] VITALS: BP 120/58
[2017-07-01 19:56] VITALS: BP 127/76
[2017-07-01] MEDS: LOSARTAN 50MG TABLET PO SCH (21:31)
[2017-07-01] MEDS: ATORVASTATIN 20 MG TABLET PO SCH (21:31)
[2017-07-01] MEDS: MIRTAZAPINE 15 MG TABLET PO SCH (21:31)
[2017-07-02 00:31] LABS: ABSOLUTE RETICS # 0.049 x10^6/uL (0.5-2.5); RETICULOCYTE COUNT % 1.62 % (0.5-1.5)
[2017-07-02 00:33] LABS: ANION GAP 7 mmol/L (5-15); CALCIUM 8.9 mg/dL (8.5-10.1); CHLORIDE 108 mmol/L (98-107); CREATININE 0.76 mg/dL (0.55-1.02)
[2017-07-02 02:14] VITALS: BP 99/58
[2017-07-02] MEDS ORDERED: SODIUM CHLORIDE 0.9% 500 ML IV SCH (06:00)
[2017-07-02 06:48] VITALS: BP 109/71
[2017-07-02] MEDS: POTASSIUM CHLORIDE 20 MEQ TAB.ER.PRT PO SCH (08:27)
[2017-07-02] MEDS: MESALAMINE 0.375 GM PO SCH (08:28)
[2017-07-02] MEDS: HEPARIN 5,000 UNITS/ML, 1ML SQ SCH (08:28)
[2017-07-02 09:20] LABS: OCCULT BLOOD NEGATIVE (NEGATIVE)
[2017-07-02 12:15] LABS: BASOPHILS # (AUTO) 0.26 x10^3/uL (0-0.1); BASOPHILS % (AUTO) 3 % (0-1); EOSINOPHILS # (AUTO) 0.45 x10^3/uL (0-0.4); EOSINOPHILS % (AUTO) 6 % (1-7); LYMPHOCYTES # (AUTO) 1.62 x10^3/uL (1-3.4); LYMPHOCYTES % (AUTO) 20 % (22-44); MD NO; MEAN CORPUSCULAR HEMOGLOBIN 27.9 pg (27.0-34.8); MEAN CORPUSCULAR VOLUME 87.4 fL (80-100); MEAN PLATELET VOLUME 7.1 fL (7.4-10.4); MONOCYTES # (AUTO) 0.73 x10^3/uL (0.2-0.8); MONOCYTES % (AUTO) 9 % (2-9); NEUTROPHILS # (AUTO) 4.96 x10^3/uL (1.8-6.8); NEUTROPHILS % (AUTO) 62 % (42-75); PLATELET COUNT 675 x10^3/uL (130-400); RED BLOOD COUNT 3.18 x10^6/uL (3.82-5.3); RED CELL DISTRIBUTION WIDTH 15.8 % (9.6-15.2)
[2017-07-02] MEDS: SIMETHICONE 80 MG CHEW TAB PO PRN (12:30)
[2017-07-02 13:36] VITALS: BP 113/70
[2017-07-02 19:36] VITALS: BP 130/77
[2017-07-02] MEDS: ATORVASTATIN 20 MG TABLET PO SCH (20:17)
[2017-07-02] MEDS: MIRTAZAPINE 15 MG TABLET PO SCH (20:18)
[2017-07-02] MEDS: LOSARTAN 50MG TABLET PO SCH (20:18)
[2017-07-02 20:54] LABS: CLOSTRIDIUM DIFFICILE ANTIGEN NEGATIVE; CLOSTRIDIUM DIFFICILE TOXIN NEGATIVE (Negative)
[2017-07-02 21:30] VITALS: BP 134/73
[2017-07-02] MEDS: CARVEDILOL 3.125 MG TABLET PO SCH (22:04)
[2017-07-03 00:30] VITALS: BP 110/71
[2017-07-03] MEDS: ACETAMINOPHEN 325 MG TABLET PO PRN ×2 (04:25→15:18)
[2017-07-03] MEDS: SIMETHICONE 80 MG CHEW TAB PO PRN (04:25)
[2017-07-03 06:23] LABS: BASOPHILS # (AUTO) 0.06 x10^3/uL (0-0.1); BASOPHILS % (AUTO) 1 % (0-1); EOSINOPHILS # (AUTO) 0.55 x10^3/uL (0-0.4); EOSINOPHILS % (AUTO) 7 % (1-7); LYMPHOCYTES # (AUTO) 2.25 x10^3/uL (1-3.4); LYMPHOCYTES % (AUTO) 27 % (22-44); MD NO; MEAN CORPUSCULAR HEMOGLOBIN 28.6 pg (27.0-34.8); MEAN CORPUSCULAR HGB CONC 32.8 g/dL (32.4-35.8); MEAN CORPUSCULAR VOLUME 87.3 fL (80-100); MEAN PLATELET VOLUME 6.9 fL (7.4-10.4); MONOCYTES # (AUTO) 0.87 x10^3/uL (0.2-0.8); MONOCYTES % (AUTO) 11 % (2-9); NEUTROPHILS # (AUTO) 4.54 x10^3/uL (1.8-6.8); NEUTROPHILS % (AUTO) 55 % (42-75); PLATELET COUNT 654 x10^3/uL (130-400); RED BLOOD COUNT 2.86 x10^6/uL (3.82-5.3); RED CELL DISTRIBUTION WIDTH 15.3 % (9.6-15.2)
[2017-07-03 06:30] LABS: ANION GAP 7 mmol/L (5-15); CALCIUM 8.9 mg/dL (8.5-10.1); CHLORIDE 110 mmol/L (98-107); CREATININE 0.71 mg/dL (0.55-1.02)
[2017-07-03 07:13] VITALS: BP 113/71
[2017-07-03] MEDS: MESALAMINE 0.375 GM PO SCH (08:45)
[2017-07-03] MEDS: CARVEDILOL 3.125 MG TABLET PO SCH ×2 (08:46→21:03)
[2017-07-03] MEDS: POTASSIUM CHLORIDE 20 MEQ TAB.ER.PRT PO SCH ×2 (08:46→21:02)
[2017-07-03] MEDS: MESALAMINE 1.5 GM HOMEMEDPO SCH (09:30)
[2017-07-03 12:51] VITALS: BP 127/66
[2017-07-03] MEDS ORDERED: PRAMIPEXOLE 0.5MG TABLET PO SCH (20:00)
[2017-07-03] MEDS: MIRTAZAPINE 15 MG TABLET PO SCH (21:03)
[2017-07-03] MEDS: ATORVASTATIN 20 MG TABLET PO SCH (21:03)
[2017-07-03] MEDS: LOSARTAN 50MG TABLET PO SCH (21:03)
[2017-07-03 21:31] VITALS: BP 139/76
[2017-07-04] MEDS: ONDANSETRON ODT 4 MG PO PRN ×2 (01:21→07:11)
[2017-07-04 01:23] VITALS: BP 116/68
[2017-07-04] MEDS: CARVEDILOL 3.125 MG TABLET PO SCH (07:11)
[2017-07-04 07:17] VITALS: BP 138/76
[2017-07-04] MEDS: POTASSIUM CHLORIDE 20 MEQ TAB.ER.PRT PO SCH (09:02)
[2017-07-04] MEDS: SIMETHICONE 80 MG CHEW TAB PO PRN ×2 (09:03→15:32)
[2017-07-04] MEDS: MESALAMINE 1.5 GM HOMEMEDPO SCH (09:07)
[2017-07-04 12:38] VITALS: BP 133/77
[2017-07-04] MEDS ORDERED: POTA20TA6 PO (14:29)
[2017-07-04] MEDS ORDERED: LOSA50TA2 PO (14:29)
== END 2017-07-04 17:50 | DRG 682 ==
LOC: ED 13:21 → EDIP 13:41 → 4EST 14:55
PROVIDERS: ADMIT Family Medicine; ATTEND Family Medicine
DX: N17.0 Acute kidney failure with tubular necrosis (principal); E43 Unspecified severe protein-calorie malnutrition; I47.1 Supraventricular tachycardia; K57.92 Diverticulitis of intestine, part unspecified, without perforation or abscess without bleeding; I50.9 Heart failure, unspecified; I11.0 Hypertensive heart disease with heart failure; F44.4 Conversion disorder with motor symptom or deficit; D63.8 Anemia in other chronic diseases classified elsewhere; E86.0 Dehydration; N82.3 Fistula of vagina to large intestine; N82.8 Other female genital tract fistulae; E87.6 Hypokalemia; E78.5 Hyperlipidemia, unspecified; I25.10 Atherosclerotic heart disease of native coronary artery without angina pectoris; K21.9 Gastro-esophageal reflux disease without esophagitis; K52.839 Microscopic colitis, unspecified; K52.9 Noninfective gastroenteritis and colitis, unspecified; Z86.19 Personal history of other infectious and parasitic diseases; Z87.891 Personal history of nicotine dependence; Z88.8 Allergy status to other drugs, medicaments and biological substances
CPT/HCPCS: 36415; 80048; 80053; 81001; 82272; 82728; 83690; 83735; 85025; 85045; 87086; 87324; 93005; 96365; J3475; Q0162; J3480; J7040

== ENCOUNTER → 2017-08-17 | Outpatient (CLI) | payer MEDICARE, OTHER ==
[~2017-08-17] MED LIST changes: +LOSA50TA2 PO; +MESA0.372 PO; +MULT1TAB60 PO; +NYST15CR2 TP; +ONDA4TAB13 SL; +POTA20TA14 PO; +POTA20TA6 PO; +TRAM50TA2 PO; +[UNRECOGNIZED DRUG - OTHER] PO; +[UNRECOGNIZED DRUG - OTHER] PO
== END ==
LOC: RAD 08:15
PROVIDERS: ATTEND Surgery
DX: N82.3 Fistula of vagina to large intestine (principal); K52.9 Noninfective gastroenteritis and colitis, unspecified; I47.1 Supraventricular tachycardia; D64.9 Anemia, unspecified
CPT/HCPCS: 72192; 74270

== ENCOUNTER → 2017-08-17 | Outpatient (CLI) | payer MEDICARE, OTHER ==
[2017-08-17 11:27] LABS: BASOPHILS # (AUTO) 0.05 x10^3/uL (0-0.1); BASOPHILS % (AUTO) 0 % (0-1); EOSINOPHILS % (AUTO) 3 % (1-7); LYMPHOCYTES # (AUTO) 1.85 x10^3/uL (1-3.4); LYMPHOCYTES % (AUTO) 13 % (22-44); MD NO; MEAN CORPUSCULAR HEMOGLOBIN 27.7 pg (27.0-34.8); MEAN CORPUSCULAR HGB CONC 32.1 g/dL (32.4-35.8); MEAN CORPUSCULAR VOLUME 86.1 fL (80-100); MEAN PLATELET VOLUME 7.2 fL (7.4-10.4); MONOCYTES # (AUTO) 0.07 x10^3/uL (0.2-0.8); MONOCYTES % (AUTO) 1 % (2-9); NEUTROPHILS # (AUTO) 12.01 x10^3/uL (1.8-6.8); NEUTROPHILS % (AUTO) 84 % (42-75); PLATELET COUNT 738 x10^3/uL (130-400); RED BLOOD COUNT 3.69 x10^6/uL (3.82-5.3); RED CELL DISTRIBUTION WIDTH 20.3 % (9.6-15.2)
[2017-08-17 11:39] LABS: ALANINE AMINOTRANSFERASE 13 U/L (12-78); ALBUMIN 2.3 g/dL (3.4-5.0); ANION GAP 5 mmol/L (5-15); CALCIUM 9.8 mg/dL (8.5-10.1); CHLORIDE 108 mmol/L (98-107); CREATININE 0.61 mg/dL (0.55-1.02)
[2017-08-17 11:42] LABS: ALKALINE PHOSPHATASE 132 U/L (45-117); BILIRUBIN,TOTAL 0.4 mg/dL (0.2-1.0); TOTAL PROTEIN 7.2 g/dL (6.4-8.2)
== END | disposition home or self-care (01) ==
LOC: STAR 08:23
PROVIDERS: ATTEND Surgery
DX: Z01.818 Encounter for other preprocedural examination (principal)
CPT/HCPCS: 36415; 71046; 80053; 85025; 93005

== ENCOUNTER → 2017-08-19 | Outpatient (CLI) | payer MEDICARE, OTHER | END | disposition home or self-care (01) | LOC: WOUND 13:17 | PROVIDERS: ATTEND Family Medicine | DX: Z01.818 Encounter for other preprocedural examination (principal); N82.3 Fistula of vagina to large intestine; E78.5 Hyperlipidemia, unspecified; I25.10 Atherosclerotic heart disease of native coronary artery without angina pectoris; I11.0 Hypertensive heart disease with heart failure; I50.9 Heart failure, unspecified; K21.9 Gastro-esophageal reflux disease without esophagitis; M19.90 Unspecified osteoarthritis, unspecified site; F32.9 Major depressive disorder, single episode, unspecified; Z86.19 Personal history of other infectious and parasitic diseases; Z87.891 Personal history of nicotine dependence; Z90.710 Acquired absence of both cervix and uterus | CPT/HCPCS: G0463; WOU0463 ==

== ENCOUNTER 2017-08-24 07:42 | Inpatient (IN) | payer MEDICARE, OTHER ==
[~2017-08-24] VITALS: Ht 175.3 cm; Wt 88.6 kg
[~2017-08-24 07:42] MED LIST changes: -CLON-364 PO; +CLON0.5T11 PO
[2017-08-24] MEDS ORDERED: LACTATED RINGERS 1,000 ML IV SCH (08:07)
[2017-08-24] MEDS ORDERED: BUPIVACAINE/PF 0.5% ONE (09:07)
[2017-08-24] MEDS ORDERED: INDOCYANINE GREEN 25 MG VIAL ONE (09:08)
[2017-08-24] MEDS ORDERED: MIDAZOLAM 1 MG/ML, 2ML ONE (09:17)
[2017-08-24] MEDS ORDERED: FENTANYL PF 250 MCG/5ML ONE ×2 (09:17→11:52)
[2017-08-24] MEDS: ACETAMINOPHEN 500 MG TABLET PO ONE ×2 (09:18→09:23)
[2017-08-24] MEDS ORDERED: GABAPENTIN 300 MG CAPSULE PO ONE (09:30)
[2017-08-24] MEDS ORDERED: METRONIDAZOLE PMX 500MG/100ML 100 ML ONE (09:42)
[2017-08-24] MEDS ORDERED: ONDANSETRON 2MG/ML, 2ML ONE (09:48)
[2017-08-24] MEDS ORDERED: NEOSTIGMINE 1 MG/ML, 10ML ONE (09:48)
[2017-08-24] MEDS ORDERED: DEXAMETHASONE 4 MG/ML, 1ML ONE (09:48)
[2017-08-24] MEDS ORDERED: PROPOFOL 10 MG/ML, 20ML ONE (09:48)
[2017-08-24] MEDS ORDERED: GLYCOPYRROLATE 0.2MG/1ML, 5ML ONE (09:48)
[2017-08-24] MEDS ORDERED: ROCURONIUM 10MG/ML,5ML ONE (09:48)
[2017-08-24] MEDS ORDERED: METOPROLOL 1 MG/ML, 5ML ONE (09:48)
[2017-08-24] MEDS ORDERED: CEFAZOLIN 1,000 MG ONE (09:48)
[2017-08-24] MEDS ORDERED: FENTANYL PF 100 MCG/2ML IV PRN (10:30)
[2017-08-24] MEDS ORDERED: MEPERIDINE/PF 25MG/0.5ML IVPush PRN (10:30)
[2017-08-24] MEDS ORDERED: ALBUTEROL SULFATE 2.5 MG/3 ML NPPB PRN (10:30)
[2017-08-24] MEDS ORDERED: hydrALAzine 20 MG/ML, 1ML IV PRN (10:30)
[2017-08-24] MEDS ORDERED: OXYcodone 5 MG/5 ML ORAL.SOL UDC PO PRN (10:30)
[2017-08-24] MEDS ORDERED: MORPHINE SULFATE 4 MG/ML, 1ML IVPush PRN (10:30)
[2017-08-24] MEDS ORDERED: PROMETHAZINE 25 MG/ML, 1ML IV PRN (10:30)
[2017-08-24] MEDS ORDERED: LABETALOL 5MG/ML, 20ML IV PRN (10:30)
[2017-08-24] MEDS ORDERED: BUPIVACAINE/PF-EPI 0.5% 1:200K IM ONE (11:03)
[2017-08-24] MEDS ORDERED: INDOCYANINE GREEN 25 MG VIAL IV ONE (11:04)
[2017-08-24] MEDS ORDERED: OXYcodone 5 MG/5 ML ORAL.SOL UDC ONE (14:13)
[2017-08-24] MEDS ORDERED: HYDROmorphone 2 MG/ML, 1ML ONE (14:13)
[2017-08-24] MEDS: HYDROmorphone 1 MG/ML, 1ML IV PRN ×3 (14:14→14:51)
[2017-08-24] MEDS ORDERED: LORazepam 2 MG/ML, 1ML IVPush STA (14:18)
[2017-08-24] MEDS ORDERED: LORazepam 2 MG/ML, 1ML ONE (14:24)
[2017-08-24] MEDS ORDERED: CALCIUM CARBONATE 500 MG TAB.CHEW PO PRN (16:00)
[2017-08-24] MEDS ORDERED: D5%-0.45NACL+KCL 20MEQ 1,000 ML IV SCH (16:00)
[2017-08-24] MEDS ORDERED: TRAZODONE 50MG TABLET PO PRN (16:00)
[2017-08-24] MEDS ORDERED: DIPHENHYDRAMINE 25 MG CAPSULE PO PRN (16:00)
[2017-08-24] MEDS ORDERED: HALOPERIDOL 5 MG/ML IVPush PRN (16:00)
[2017-08-24] MEDS ORDERED: LORazepam 1MG TABLET PO PRN (16:00)
[2017-08-24] MEDS: ACETAMINOPHEN 500 MG TABLET PO SCH ×2 (16:00→21:49)
[2017-08-24] MEDS ORDERED: DEXAMETHASONE 4 MG/ML, 1ML IVPush PRN (16:00)
[2017-08-24] MEDS ORDERED: LORazepam 2 MG/ML, 1ML IVPush PRN (16:00)
[2017-08-24] MEDS ORDERED: HYDROmorphone 1 MG/ML, 1ML IVPush PRN (16:00)
[2017-08-24] MEDS ORDERED: SCOPOLAMINE PATCH, 1.5MG PATCH.TD72 TD PRN (16:00)
[2017-08-24] MEDS ORDERED: DIPHENHYDRAMINE 50 MG/ML, 1ML IVPush PRN (16:00)
[2017-08-24] MEDS: IBUPROFEN 800 MG TABLET PO SCH ×2 (16:43→21:15)
[2017-08-24] MEDS: OXYcodone IR 5MG TABLET PO PRN ×2 (17:13→21:15)
[2017-08-24] MEDS: CARVEDILOL 3.125 MG TABLET PO SCH (18:16)
[2017-08-24 20:00] VITALS: BP 109/71
[2017-08-24] MEDS: PRAMIPEXOLE 0.5MG TABLET PO SCH (21:00)
[2017-08-24] MEDS ORDERED: PRAMIPEXOLE 0.25MG TABLET ONE (21:13)
[2017-08-24] MEDS: ATORVASTATIN 20 MG TABLET PO SCH (21:15)
[2017-08-25] VITALS (10 sets, daily range): BP systolic 62–97; BP diastolic 42–63
[2017-08-25] MEDS: ACETAMINOPHEN 500 MG TABLET PO SCH ×4 (04:00→21:30)
[2017-08-25 05:31] LABS: CALCIUM 8.9 mg/dL (8.5-10.1); CHLORIDE 106 mmol/L (98-107)
[2017-08-25 05:32] LABS: MEAN CORPUSCULAR HEMOGLOBIN 28.7 pg (27.0-34.8); MEAN CORPUSCULAR HGB CONC 32.8 g/dL (32.4-35.8); MEAN CORPUSCULAR VOLUME 87.5 fL (80-100); MEAN PLATELET VOLUME 7.7 fL (7.4-10.4); PLATELET COUNT 570 x10^3/uL (130-400); RED BLOOD COUNT 3.08 x10^6/uL (3.82-5.3); RED CELL DISTRIBUTION WIDTH 20.2 % (9.6-15.2)
[2017-08-25 05:35] LABS: ANION GAP 10 mmol/L (5-15); CREATININE 0.99 mg/dL (0.55-1.02)
[2017-08-25] MEDS: CARVEDILOL 3.125 MG TABLET PO SCH ×2 (05:48→16:56)
[2017-08-25] MEDS ORDERED: D5%-0.45NACL+KCL 20MEQ 1,000 ML IV SCH (06:00)
[2017-08-25 06:04] LABS: MD YES
[2017-08-25 06:06] LABS: <PLATELET ESTIMATE> INCREASED; <PLT MORPHOLOGY> NORMAL PLT MORPH; <RBC MORPHOLOGY> NORMAL; BAND#(MANUAL) 3.36 x10^3/uL; BANDS%(MANUAL) 16 % (0-7); LYMPH#(MANUAL) 0.42 x10^3/uL (1-3.4); LYMPHS% (MANUAL) 2 % (22-44); MONOS#(MANUAL) 0.42 x10^3/uL (0.3-2.7); MONOS% (MANUAL) 2 % (2-9); SEGS% (MANUAL) 80 % (42-75)
[2017-08-25] MEDS ORDERED: SODIUM CHLORIDE 0.9% 1,000ML IVBOLUS ONE ×2 (06:30→10:30)
[2017-08-25 11:11] LABS: MEAN CORPUSCULAR HGB CONC 32.8 g/dL (32.4-35.8); MEAN CORPUSCULAR VOLUME 88.3 fL (80-100); MEAN PLATELET VOLUME 7.4 fL (7.4-10.4); PLATELET COUNT 510 x10^3/uL (130-400); RED BLOOD COUNT 2.81 x10^6/uL (3.82-5.3); RED CELL DISTRIBUTION WIDTH 20.1 % (9.6-15.2)
[2017-08-25 12:59] LABS: MD YES
[2017-08-25 13:17] LABS: BAND#(MANUAL) 3.78 x10^3/uL; BANDS%(MANUAL) 19 % (0-7); LYMPHS% (MANUAL) 5 % (22-44); MONOS% (MANUAL) 1 % (2-9); SEG#(MANUAL) 14.93 x10^3/uL (1.8-6.8); SEGS% (MANUAL) 75 % (42-75)
[2017-08-25 13:18] LABS: <PLATELET ESTIMATE> INCREASED; <PLT MORPHOLOGY> NORMAL PLT MORPH; ANISOCYTOSIS 1+; HYPOCHROMIA 1+
[2017-08-25 13:32] LABS: MEAN CORPUSCULAR HEMOGLOBIN 27.9 pg (27.0-34.8); MEAN CORPUSCULAR HGB CONC 31.9 g/dL (32.4-35.8); MEAN CORPUSCULAR VOLUME 87.6 fL (80-100); MEAN PLATELET VOLUME 6.9 fL (7.4-10.4); PLATELET COUNT 514 x10^3/uL (130-400); RED BLOOD COUNT 2.85 x10^6/uL (3.82-5.3); RED CELL DISTRIBUTION WIDTH 19.9 % (9.6-15.2)
[2017-08-25 13:44] LABS: ALANINE AMINOTRANSFERASE 8 U/L (12-78); ALBUMIN 1.3 g/dL (3.4-5.0); ANION GAP 8 mmol/L (5-15); CALCIUM 8.5 mg/dL (8.5-10.1); CHLORIDE 110 mmol/L (98-107); CREATININE 0.92 mg/dL (0.55-1.02)
[2017-08-25 13:48] LABS: ALKALINE PHOSPHATASE 66 U/L (45-117); BILIRUBIN,TOTAL 0.4 mg/dL (0.2-1.0); TOTAL PROTEIN 4.8 g/dL (6.4-8.2); TROPONIN I < 0.015 ng/mL (0.000-0.045)
[2017-08-25 13:54] LABS: THYROID STIMULATING HORMONE 0.728 mIU/L (0.358-3.740)
[2017-08-25] MEDS ORDERED: ENOXAPARIN 40 MG/0.4 ML SQ SCH (14:00)
[2017-08-25 15:15] LABS: MD YES
[2017-08-25 15:38] LABS: BAND#(MANUAL) 5.08 x10^3/uL; BANDS%(MANUAL) 22 % (0-7); BASOS#(MANUAL) 0.23 x10^3/uL (0-0.1); BASOS% (MANUAL) 1 % (0-1); LYMPH#(MANUAL) 1.39 x10^3/uL (1-3.4); LYMPHS% (MANUAL) 6 % (22-44); MONOS#(MANUAL) 0.46 x10^3/uL (0.3-2.7); MONOS% (MANUAL) 2 % (2-9); SEG#(MANUAL) 15.94 x10^3/uL (1.8-6.8); SEGS% (MANUAL) 69 % (42-75)
[2017-08-25 15:39] LABS: <PLATELET ESTIMATE> INCREASED; <PLT MORPHOLOGY> NORMAL PLT MORPH; ANISOCYTOSIS 1+
[2017-08-25 17:09] LABS: CLOSTRIDIUM DIFFICILE ANTIGEN NEGATIVE; CLOSTRIDIUM DIFFICILE TOXIN NEGATIVE (Negative)
[2017-08-25] MEDS ORDERED: METOPROLOL 1 MG/ML, 5ML ONE (18:03)
[2017-08-25] MEDS ORDERED: METOPROLOL 1 MG/ML, 5ML IVPush ONE (18:30)
[2017-08-25] MEDS: OXYcodone IR 5MG TABLET PO PRN (19:47)
[2017-08-25] MEDS: PRAMIPEXOLE 0.5MG TABLET PO SCH (19:47)
[2017-08-25] MEDS: ONDANSETRON 2MG/ML, 2ML IV PRN (19:52)
[2017-08-25] MEDS ORDERED: METOPROLOL 1 MG/ML, 5ML IVPush PRN (20:30)
[2017-08-25] MEDS ORDERED: SODIUM CHLORIDE 0.9%, 500ML IVBOLUS ONE (20:30)
[2017-08-25] MEDS: ATORVASTATIN 20 MG TABLET PO SCH (21:30)
[2017-08-25 21:56] LABS: CULTURE INDICATED? YES; MICROSCOPIC INDICATED
[2017-08-26 04:00] VITALS: BP 98/42
[2017-08-26 04:27] LABS: MEAN CORPUSCULAR HEMOGLOBIN 28.3 pg (27.0-34.8); MEAN CORPUSCULAR HGB CONC 32.1 g/dL (32.4-35.8); MEAN CORPUSCULAR VOLUME 88.3 fL (80-100); MEAN PLATELET VOLUME 7.4 fL (7.4-10.4); PLATELET COUNT 436 x10^3/uL (130-400); RED BLOOD COUNT 2.73 x10^6/uL (3.82-5.3); RED CELL DISTRIBUTION WIDTH 20.6 % (9.6-15.2)
[2017-08-26 04:28] LABS: ANION GAP 6 mmol/L (5-15); CALCIUM 8.9 mg/dL (8.5-10.1); CHLORIDE 114 mmol/L (98-107); CREATININE 0.58 mg/dL (0.55-1.02)
[2017-08-26 04:43] LABS: MD YES
[2017-08-26 04:44] LABS: ANISOCYTOSIS 1+; BAND#(MANUAL) 2.94 x10^3/uL; BANDS%(MANUAL) 9 % (0-7); EOS#(MANUAL) 0.65 x10^3/uL (0.0-0.4); EOS% (MANUAL) 2 % (1-7); LYMPH#(MANUAL) 1.64 x10^3/uL (1-3.4); LYMPHS% (MANUAL) 5 % (22-44); MONOS#(MANUAL) 0.65 x10^3/uL (0.3-2.7); MONOS% (MANUAL) 2 % (2-9); SEG#(MANUAL) 26.81 x10^3/uL (1.8-6.8); SEGS% (MANUAL) 82 % (42-75)
[2017-08-26 04:45] LABS: <PLATELET ESTIMATE> INCREASED; <PLT MORPHOLOGY> NORMAL PLT MORPH
[2017-08-26] MEDS: CARVEDILOL 3.125 MG TABLET PO SCH ×2 (05:13→18:54)
[2017-08-26] MEDS: ACETAMINOPHEN 500 MG TABLET PO SCH ×4 (05:13→22:00)
[2017-08-26] MEDS ORDERED: POTASSIUM CHLORIDE 20 MEQ TAB.ER.PRT PO ONE (06:30)
[2017-08-26] MEDS: OXYcodone IR 5MG TABLET PO PRN ×5 (06:53→21:08)
[2017-08-26] MEDS ORDERED: MAGNESIUM SULFATE 1 GM in SODIUM CHLORIDE 0.9% 100 ML IV ONE (09:00)
[2017-08-26] MEDS ORDERED: MAGNESIUM SULFATE 1 GM in SODIUM CHLORIDE 0.9% 50 ML IV ONE (09:00)
[2017-08-26] MEDS: ZINC SULFATE 220 MG CAPSULE PO SCH (09:48)
[2017-08-26] MEDS: ONDANSETRON 2MG/ML, 2ML IV PRN (11:10)
[2017-08-26] MEDS: VANCOMYCIN 5 MG/ML PR SCH ×2 (15:25→21:08)
[2017-08-26] MEDS: VANCOMYCIN 50 MG/ML ORAL SUSP PO SCH ×2 (15:25→21:08)
[2017-08-26] MEDS: ATORVASTATIN 20 MG TABLET PO SCH (21:08)
[2017-08-26] MEDS: PRAMIPEXOLE 0.5MG TABLET PO SCH (21:08)
[2017-08-27] MEDS: OXYcodone IR 5MG TABLET PO PRN ×3 (03:47→20:51)
[2017-08-27] MEDS: ACETAMINOPHEN 500 MG TABLET PO SCH ×4 (03:48→20:51)
[2017-08-27] MEDS: VANCOMYCIN 50 MG/ML ORAL SUSP PO SCH ×4 (03:48→20:51)
[2017-08-27] MEDS: VANCOMYCIN 5 MG/ML PR SCH ×4 (03:48→20:39)
[2017-08-27 04:00] VITALS: BP 111/54
[2017-08-27 04:47] LABS: MEAN CORPUSCULAR HEMOGLOBIN 28.4 pg (27.0-34.8); MEAN CORPUSCULAR HGB CONC 32.4 g/dL (32.4-35.8); MEAN CORPUSCULAR VOLUME 87.8 fL (80-100); MEAN PLATELET VOLUME 7.7 fL (7.4-10.4); PLATELET COUNT 530 x10^3/uL (130-400); RED BLOOD COUNT 3.09 x10^6/uL (3.82-5.3); RED CELL DISTRIBUTION WIDTH 19.9 % (9.6-15.2)
[2017-08-27 04:57] LABS: ALANINE AMINOTRANSFERASE 10 U/L (12-78); ALBUMIN 1.4 g/dL (3.4-5.0); ANION GAP 7 mmol/L (5-15); CALCIUM 9.8 mg/dL (8.5-10.1); CHLORIDE 109 mmol/L (98-107); CREATININE 0.58 mg/dL (0.55-1.02)
[2017-08-27 04:59] LABS: ALKALINE PHOSPHATASE 123 U/L (45-117); BILIRUBIN,TOTAL 0.4 mg/dL (0.2-1.0); TOTAL PROTEIN 5.6 g/dL (6.4-8.2)
[2017-08-27 05:35] LABS: MD YES
[2017-08-27 05:36] LABS: <PLATELET ESTIMATE> INCREASED; <PLT MORPHOLOGY> NORMAL PLT MORPH; ANISOCYTOSIS 1+; BAND#(MANUAL) 1.09 x10^3/uL; BANDS%(MANUAL) 3 % (0-7); LYMPH#(MANUAL) 2.53 x10^3/uL (1-3.4); LYMPHS% (MANUAL) 7 % (22-44); MONOS#(MANUAL) 0.36 x10^3/uL (0.3-2.7); MONOS% (MANUAL) 1 % (2-9); SEG#(MANUAL) 32.22 x10^3/uL (1.8-6.8); SEGS% (MANUAL) 89 % (42-75)
[2017-08-27] MEDS: CARVEDILOL 3.125 MG TABLET PO SCH ×2 (06:07→17:25)
[2017-08-27] MEDS: ERGOCALCIFEROL 50,000 UNIT CAPSULE PO SCH ×2 (09:00→11:09)
[2017-08-27] MEDS: ZINC SULFATE 220 MG CAPSULE PO SCH (09:17)
[2017-08-27 10:35] VITALS: BP 105/65
[2017-08-27 13:25] VITALS: BP 110/68
[2017-08-27] MEDS ORDERED: LACTATED RINGERS 500 ML IVBOLUS ONE (15:30)
[2017-08-27 17:24] VITALS: BP 115/74
[2017-08-27 19:20] VITALS: BP 108/67
[2017-08-27] MEDS: PRAMIPEXOLE 0.5MG TABLET PO SCH (20:51)
[2017-08-27] MEDS: ATORVASTATIN 20 MG TABLET PO SCH (20:51)
[2017-08-28 02:32] VITALS: BP 136/82
[2017-08-28] MEDS: ACETAMINOPHEN 500 MG TABLET PO SCH ×4 (03:15→21:53)
[2017-08-28] MEDS: VANCOMYCIN 50 MG/ML PR SCH ×4 (03:15→21:54)
[2017-08-28] MEDS: OXYcodone IR 5MG TABLET PO PRN ×4 (03:15→21:53)
[2017-08-28] MEDS: VANCOMYCIN 50 MG/ML ORAL SUSP PO SCH ×4 (03:15→21:54)
[2017-08-28 04:52] LABS: MEAN CORPUSCULAR HEMOGLOBIN 28.3 pg (27.0-34.8); MEAN CORPUSCULAR HGB CONC 32.7 g/dL (32.4-35.8); MEAN CORPUSCULAR VOLUME 86.6 fL (80-100); MEAN PLATELET VOLUME 7.4 fL (7.4-10.4); PLATELET COUNT 526 x10^3/uL (130-400); RED BLOOD COUNT 2.74 x10^6/uL (3.82-5.3); RED CELL DISTRIBUTION WIDTH 20.1 % (9.6-15.2)
[2017-08-28 05:04] LABS: ANION GAP 5 mmol/L (5-15); CHLORIDE 109 mmol/L (98-107)
[2017-08-28 05:05] LABS: CREATININE 0.45 mg/dL (0.55-1.02)
[2017-08-28 05:51] VITALS: BP 110/69
[2017-08-28] MEDS: CARVEDILOL 3.125 MG TABLET PO SCH ×2 (05:53→17:35)
[2017-08-28 05:56] LABS: BASOPHILS # (AUTO) 0.05 x10^3/uL (0-0.1); BASOPHILS % (AUTO) 0 % (0-1); EOSINOPHILS # (AUTO) 1.04 x10^3/uL (0-0.4); EOSINOPHILS % (AUTO) 6 % (1-7); LYMPHOCYTES # (AUTO) 1.17 x10^3/uL (1-3.4); LYMPHOCYTES % (AUTO) 7 % (22-44); MD SCAN; MONOCYTES # (AUTO) 0.77 x10^3/uL (0.2-0.8); MONOCYTES % (AUTO) 4 % (2-9); NEUTROPHILS # (AUTO) 14.57 x10^3/uL (1.8-6.8); NEUTROPHILS % (AUTO) 83 % (42-75)
[2017-08-28] MEDS ORDERED: POTASSIUM CHLORIDE 20 MEQ TAB.ER.PRT PO ONE (07:00)
[2017-08-28] MEDS ORDERED: MAGNESIUM SULFATE PMX 2GM/50ML 50 ML IV ONE (07:00)
[2017-08-28 07:30] VITALS: BP 116/73
[2017-08-28] MEDS: ZINC SULFATE 220 MG CAPSULE PO SCH (08:42)
[2017-08-28 15:10] VITALS: BP 118/82
[2017-08-28 20:30] VITALS: BP 137/79
[2017-08-28] MEDS: PRAMIPEXOLE 0.5MG TABLET PO SCH (21:53)
[2017-08-28] MEDS: ATORVASTATIN 20 MG TABLET PO SCH (21:53)
[2017-08-29] MEDS: VANCOMYCIN 50 MG/ML ORAL SUSP PO SCH ×4 (03:50→21:24)
[2017-08-29] MEDS: OXYcodone IR 5MG TABLET PO PRN ×4 (03:50→22:22)
[2017-08-29] MEDS: VANCOMYCIN 50 MG/ML PR SCH ×4 (03:50→21:24)
[2017-08-29] MEDS: ACETAMINOPHEN 500 MG TABLET PO SCH ×2 (03:51→08:45)
[2017-08-29 04:10] VITALS: BP 144/87
[2017-08-29] MEDS: CARVEDILOL 3.125 MG TABLET PO SCH ×2 (05:06→16:23)
[2017-08-29 05:19] LABS: ANION GAP 9 mmol/L (5-15); CALCIUM 9.6 mg/dL (8.5-10.1); CHLORIDE 107 mmol/L (98-107)
[2017-08-29 05:21] LABS: CREATININE 0.44 mg/dL (0.55-1.02)
[2017-08-29 05:24] LABS: MEAN CORPUSCULAR HEMOGLOBIN 28.1 pg (27.0-34.8); MEAN CORPUSCULAR HGB CONC 32.5 g/dL (32.4-35.8); MEAN CORPUSCULAR VOLUME 86.4 fL (80-100); MEAN PLATELET VOLUME 7.8 fL (7.4-10.4); PLATELET COUNT 622 x10^3/uL (130-400); RED BLOOD COUNT 3.17 x10^6/uL (3.82-5.3)
[2017-08-29 06:00] LABS: MD YES
[2017-08-29 06:02] LABS: <PLATELET ESTIMATE> INCREASED; <PLT MORPHOLOGY> NORMAL PLT MORPH; ANISOCYTOSIS 1+; EOS#(MANUAL) 0.29 x10^3/uL (0.0-0.4); EOS% (MANUAL) 2 % (1-7); LYMPH#(MANUAL) 1.31 x10^3/uL (1-3.4); LYMPHS% (MANUAL) 9 % (22-44); MONOS#(MANUAL) 0.88 x10^3/uL (0.3-2.7); MONOS% (MANUAL) 6 % (2-9); SEG#(MANUAL) 12.12 x10^3/uL (1.8-6.8); SEGS% (MANUAL) 83 % (42-75)
[2017-08-29 08:41] VITALS: BP 130/81
[2017-08-29] MEDS: ZINC SULFATE 220 MG CAPSULE PO SCH (08:45)
[2017-08-29] MEDS ORDERED: POTASSIUM CHLORIDE 20 MEQ TAB.ER.PRT PO ONE (10:00)
[2017-08-29] MEDS ORDERED: POTASSIUM CHLORIDE 10% 40 MEQ/30 ML UDC ONE (10:26)
[2017-08-29 14:50] VITALS: BP 134/65
[2017-08-29 14:55] VITALS: BP 143/78
[2017-08-29 19:32] VITALS: BP 147/74
[2017-08-29] MEDS: ATORVASTATIN 20 MG TABLET PO SCH (21:24)
[2017-08-29] MEDS: PRAMIPEXOLE 0.5MG TABLET PO SCH (21:24)
[2017-08-30 02:18] VITALS: BP 151/64
[2017-08-30] MEDS: OXYcodone IR 5MG TABLET PO PRN ×5 (02:21→20:16)
[2017-08-30] MEDS: VANCOMYCIN 50 MG/ML PR SCH ×4 (04:53→22:59)
[2017-08-30] MEDS: VANCOMYCIN 50 MG/ML ORAL SUSP PO SCH ×4 (04:54→22:59)
[2017-08-30 05:52] LABS: CHLORIDE 104 mmol/L (98-107)
[2017-08-30 06:00] LABS: ALANINE AMINOTRANSFERASE 8 U/L (12-78); ALBUMIN 1.2 g/dL (3.4-5.0); ALKALINE PHOSPHATASE 116 U/L (45-117); ANION GAP 11 mmol/L (5-15); BILIRUBIN,TOTAL 0.4 mg/dL (0.2-1.0); CALCIUM 9.2 mg/dL (8.5-10.1); CREATININE 0.31 mg/dL (0.55-1.02); TOTAL PROTEIN 5.6 g/dL (6.4-8.2)
[2017-08-30] MEDS: CARVEDILOL 3.125 MG TABLET PO SCH ×2 (06:08→17:12)
[2017-08-30] MEDS: ONDANSETRON 2MG/ML, 2ML IV PRN (06:15)
[2017-08-30] MEDS ORDERED: POTASSIUM CHLORIDE 20 MEQ TAB.ER.PRT PO ONE ×2 (07:30→11:00)
[2017-08-30] MEDS: ZINC SULFATE 220 MG CAPSULE PO SCH (08:10)
[2017-08-30 08:15] VITALS: BP 124/77
[2017-08-30 13:13] VITALS: BP 146/80
[2017-08-30 19:17] VITALS: BP 151/67
[2017-08-30] MEDS: PRAMIPEXOLE 0.5MG TABLET PO SCH (20:16)
[2017-08-30] MEDS: ATORVASTATIN 20 MG TABLET PO SCH (20:16)
[2017-08-31] MEDS: OXYcodone IR 5MG TABLET PO PRN ×5 (00:26→18:30)
[2017-08-31 03:06] VITALS: BP 154/82
[2017-08-31 04:52] LABS: MEAN CORPUSCULAR HEMOGLOBIN 27.5 pg (27.0-34.8); MEAN CORPUSCULAR HGB CONC 32.1 g/dL (32.4-35.8); MEAN CORPUSCULAR VOLUME 85.8 fL (80-100); MEAN PLATELET VOLUME 6.9 fL (7.4-10.4); PLATELET COUNT 700 x10^3/uL (130-400); RED BLOOD COUNT 2.82 x10^6/uL (3.82-5.3); RED CELL DISTRIBUTION WIDTH 19.5 % (9.6-15.2)
[2017-08-31 05:00] LABS: ANION GAP 8 mmol/L (5-15); CALCIUM 8.9 mg/dL (8.5-10.1); CHLORIDE 104 mmol/L (98-107); CREATININE 0.25 mg/dL (0.55-1.02)
[2017-08-31 05:24] LABS: BASOPHILS # (AUTO) 0.02 x10^3/uL (0-0.1); BASOPHILS % (AUTO) 0 % (0-1); EOSINOPHILS # (AUTO) 0.59 x10^3/uL (0-0.4); EOSINOPHILS % (AUTO) 4 % (1-7); LYMPHOCYTES # (AUTO) 1.39 x10^3/uL (1-3.4); LYMPHOCYTES % (AUTO) 9 % (22-44); MD SCAN; MONOCYTES # (AUTO) 0.81 x10^3/uL (0.2-0.8); MONOCYTES % (AUTO) 5 % (2-9); NEUTROPHILS # (AUTO) 12.56 x10^3/uL (1.8-6.8); NEUTROPHILS % (AUTO) 82 % (42-75)
[2017-08-31] MEDS: VANCOMYCIN 50 MG/ML ORAL SUSP PO SCH ×3 (06:32→18:00)
[2017-08-31] MEDS: VANCOMYCIN 50 MG/ML PR SCH ×3 (06:32→18:00)
[2017-08-31] MEDS: CARVEDILOL 3.125 MG TABLET PO SCH ×2 (06:33→18:00)
[2017-08-31] MEDS ORDERED: POTASSIUM CHLORIDE 20 MEQ TAB.ER.PRT PO ONE (07:00)
[2017-08-31 08:03] VITALS: BP 151/85
[2017-08-31] MEDS: ZINC SULFATE 220 MG CAPSULE PO SCH (08:16)
[2017-08-31 14:44] VITALS: BP 145/84
[2017-08-31] MEDS ORDERED: LOSA50TA6 PO (16:26)
[2017-08-31] MEDS ORDERED: ERGO500017 PO (16:26)
[2017-08-31] MEDS ORDERED: LOSARTAN 50MG TABLET PO SCH (16:30)
[2017-08-31] MEDS ORDERED: VANC1VIA3 PO (16:32)
[2017-08-31] MEDS ORDERED: VANC1VIA3 PR (16:32)
[2017-08-31] MEDS ORDERED: ERGOCALCIFEROL 50,000 UNIT CAPSULE PO SCH ×2 (17:00)
[2017-08-31 18:00] VITALS: BP 130/57
[2017-08-31 20:18] VITALS: BP 146/69
[2017-08-31] MEDS: PRAMIPEXOLE 0.5MG TABLET PO SCH (21:21)
[2017-08-31] MEDS: ATORVASTATIN 20 MG TABLET PO SCH (21:21)
[2017-09-01] MEDS: VANCOMYCIN 50 MG/ML ORAL SUSP PO SCH ×3 (00:22→11:40)
[2017-09-01] MEDS: VANCOMYCIN 50 MG/ML PR SCH ×3 (00:22→11:40)
[2017-09-01] MEDS: OXYcodone IR 5MG TABLET PO PRN ×3 (00:33→11:59)
[2017-09-01 04:30] VITALS: BP 139/64
[2017-09-01 06:08] VITALS: BP 144/61
[2017-09-01] MEDS: CARVEDILOL 3.125 MG TABLET PO SCH (06:10)
[2017-09-01 06:42] VITALS: BP 145/66
[2017-09-01] MEDS: ZINC SULFATE 220 MG CAPSULE PO SCH (08:39)
[2017-09-01 13:51] VITALS: BP 142/72
== END 2017-09-01 14:35 | disposition home or self-care (01) | DRG 853 ==
LOC: ORIP 07:42 → 4NOR 15:31 → 5SO 08-25 10:01 → CCU 08-25 11:22 → 4NOR 08-27 10:26
PROVIDERS: ADMIT Surgery; ATTEND Surgery
PROC: 0DBP4ZZ Excision of Rectum, Percutaneous Endoscopic Approach (ICD-10-PCS; 2017-08-24)
PROC: 0DBN4ZZ Excision of Sigmoid Colon, Percutaneous Endoscopic Approach (ICD-10-PCS; 2017-08-24)
PROC: 0D1M4Z4 Bypass Descending Colon to Cutaneous, Percutaneous Endoscopic Approach (ICD-10-PCS; 2017-08-24)
PROC: 8E0W4CZ Robotic Assisted Procedure of Trunk Region, Percutaneous Endoscopic Approach (ICD-10-PCS; 2017-08-24)
PROC: 0T788DZ Dilation of Bilateral Ureters with Intraluminal Device, Via Natural or Artificial Opening Endoscopic (ICD-10-PCS; principal; 2017-08-24 09:30)
PROC: 0DB84ZZ Excision of Small Intestine, Percutaneous Endoscopic Approach (ICD-10-PCS; 2017-08-24 09:30)
DX: A41.9 Sepsis, unspecified organism (principal); E43 Unspecified severe protein-calorie malnutrition; N82.3 Fistula of vagina to large intestine; I47.1 Supraventricular tachycardia; K57.80 Diverticulitis of intestine, part unspecified, with perforation and abscess without bleeding; D64.9 Anemia, unspecified; E55.9 Vitamin D deficiency, unspecified; E87.6 Hypokalemia; D72.825 Bandemia; R32 Unspecified urinary incontinence; Z68.28 Body mass index [BMI] 28.0-28.9, adult; Z90.49 Acquired absence of other specified parts of digestive tract; I95.9 Hypotension, unspecified; Z82.49 Family history of ischemic heart disease and other diseases of the circulatory system
CPT/HCPCS: 36415; 80048; 80053; 81001; 82306; 82533; 83605; 83735; 84100; 84443; 84484; 85014; 85018; 85025; 86850; 86900; 87040; 87081; 87086; 87324; 88307; 93005; 93306; J0690; J1100; J1170; J2250; J2405; J2704; J2710; J3010; J3370; J3475; J3490; J3480; J7030; J7040; J7120

== ENCOUNTER → 2018-01-13 | Outpatient (CLI) | payer MEDICARE, OTHER ==
[~2018-01-13] MED LIST changes: +ERGO500017 PO; -LOSA50TA6 PO; +LOSA50TA7 PO; +VANC1VIA3 PO; +VANC1VIA3 PR
== END | disposition home or self-care (01) ==
LOC: WOUND 10:39
PROVIDERS: ATTEND Family Medicine
DX: Z93.3 Colostomy status (principal); I11.0 Hypertensive heart disease with heart failure; I50.9 Heart failure, unspecified; F32.9 Major depressive disorder, single episode, unspecified; E78.5 Hyperlipidemia, unspecified; K21.9 Gastro-esophageal reflux disease without esophagitis; M19.90 Unspecified osteoarthritis, unspecified site; I25.10 Atherosclerotic heart disease of native coronary artery without angina pectoris; Z87.891 Personal history of nicotine dependence; Z90.49 Acquired absence of other specified parts of digestive tract
CPT/HCPCS: G0463

== ENCOUNTER → 2018-02-09 | Outpatient (CLI) | payer MEDICARE, OTHER | END | disposition home or self-care (01) | LOC: WOUND 11:07 | PROVIDERS: ATTEND Internal Medicine Cardiovascular Disease | DX: Z09 Encounter for follow-up examination after completed treatment for conditions other than malignant neoplasm (principal); Z87.19 Personal history of other diseases of the digestive system | CPT/HCPCS: G0463 ==

== ENCOUNTER → 2018-02-16 | Outpatient (CLI) | payer MEDICARE, OTHER | END | disposition home or self-care (01) | LOC: RAD 08:17 | PROVIDERS: ATTEND Surgery | DX: K43.5 Parastomal hernia without obstruction or gangrene (principal); Z90.49 Acquired absence of other specified parts of digestive tract | CPT/HCPCS: 74270 ==

== ENCOUNTER → 2018-02-16 | Outpatient (CLI) | payer MEDICARE, OTHER | END | disposition home or self-care (01) | LOC: WOUND 13:11 | PROVIDERS: ATTEND Internal Medicine Cardiovascular Disease | DX: Z93.3 Colostomy status (principal); I25.10 Atherosclerotic heart disease of native coronary artery without angina pectoris; K21.9 Gastro-esophageal reflux disease without esophagitis; I11.0 Hypertensive heart disease with heart failure; I50.9 Heart failure, unspecified; E78.5 Hyperlipidemia, unspecified; F32.9 Major depressive disorder, single episode, unspecified; M19.90 Unspecified osteoarthritis, unspecified site; Z87.891 Personal history of nicotine dependence; Z90.49 Acquired absence of other specified parts of digestive tract | CPT/HCPCS: G0463 ==

== ENCOUNTER → 2018-02-23 | Outpatient (CLI) | payer MEDICARE, OTHER | END | disposition home or self-care (01) | LOC: WOUND 12:49 | PROVIDERS: ATTEND Internal Medicine Cardiovascular Disease | DX: Z93.3 Colostomy status (principal); I11.0 Hypertensive heart disease with heart failure; I50.9 Heart failure, unspecified; M19.90 Unspecified osteoarthritis, unspecified site; F32.9 Major depressive disorder, single episode, unspecified; K21.9 Gastro-esophageal reflux disease without esophagitis; E78.5 Hyperlipidemia, unspecified; I25.10 Atherosclerotic heart disease of native coronary artery without angina pectoris; Z87.891 Personal history of nicotine dependence; Z90.49 Acquired absence of other specified parts of digestive tract | CPT/HCPCS: G0463 ==

== ENCOUNTER → 2018-03-02 | Outpatient (CLI) | payer MEDICARE, OTHER | END | disposition home or self-care (01) | LOC: WOUND 13:06 | PROVIDERS: ATTEND Internal Medicine Cardiovascular Disease | DX: Z93.3 Colostomy status (principal); M19.90 Unspecified osteoarthritis, unspecified site; I10 Essential (primary) hypertension; F32.9 Major depressive disorder, single episode, unspecified; K21.9 Gastro-esophageal reflux disease without esophagitis; E78.5 Hyperlipidemia, unspecified; Z87.891 Personal history of nicotine dependence | CPT/HCPCS: G0463 ==

== ENCOUNTER → 2018-03-02 | Outpatient (CLI) | payer MEDICARE, OTHER ==
[2018-03-02 11:56] LABS: CALCIUM 10.3 mg/dL (8.5-10.1)
[2018-03-02 12:10] LABS: FREE T4 (FREE THYROXINE) 0.84 ng/dL (0.76-1.46); THYROID STIMULATING HORMONE 1.54 mIU/L (0.358-3.740)
== END | disposition home or self-care (01) ==
LOC: LAB 11:32
PROVIDERS: ATTEND Surgery
DX: E21.0 Primary hyperparathyroidism (principal); E04.1 Nontoxic single thyroid nodule
CPT/HCPCS: 36415; 82306; 82310; 83970; 84439; 84443

== ENCOUNTER 2018-03-09 13:15 | Outpatient (CLI) | payer MEDICARE, OTHER ==
[2018-03-14] MEDS ORDERED: LOSA1TAB22 PO (13:47)
[2018-03-14] MEDS ORDERED: PSEU120T10 PO (13:47)
[2018-03-14] MEDS ORDERED: ATOR20TA37 PO (13:47)
[2018-03-14] MEDS ORDERED: FERR324T5 PO (13:47)
[2018-03-14] MEDS ORDERED: POTA20TA6 PO (13:47)
[2018-03-14] MEDS ORDERED: PRAM1TAB5 PO (13:47)
[2018-03-14] MEDS ORDERED: BUPR-86 PO (13:47)
[2018-03-14] MEDS ORDERED: CHOL100015 PO (13:47)
[2018-03-14] MEDS ORDERED: CARV-39 PO (13:47)
[2018-03-14] MEDS ORDERED: ESZO2TAB22 PO (13:47)
[2018-03-14] MEDS ORDERED: STOOL PO (14:05)
== END 2018-03-09 23:59 | disposition home or self-care (01) ==
LOC: WOUND 13:15
PROVIDERS: ATTEND Internal Medicine Cardiovascular Disease
DX: Z93.3 Colostomy status (principal); I11.0 Hypertensive heart disease with heart failure; I50.9 Heart failure, unspecified; E78.5 Hyperlipidemia, unspecified; E21.0 Primary hyperparathyroidism; M19.90 Unspecified osteoarthritis, unspecified site; F32.9 Major depressive disorder, single episode, unspecified; K21.9 Gastro-esophageal reflux disease without esophagitis; I25.10 Atherosclerotic heart disease of native coronary artery without angina pectoris; Z87.891 Personal history of nicotine dependence; Z90.49 Acquired absence of other specified parts of digestive tract
CPT/HCPCS: G0463

== ENCOUNTER → 2018-03-14 | Outpatient (CLI) | payer MEDICARE, OTHER ==
[~2018-03-14] MED LIST changes: +ATOR20TA37 PO; +BUPR-86 PO; +CARV-39 PO; +CHOL100015 PO; +ESZO2TAB22 PO; +FERR324T5 PO; +PRAM1TAB5 PO; +PSEU120T10 PO; +STOOL PO
[2018-03-14 14:27] LABS: ALANINE AMINOTRANSFERASE 22 U/L (12-78); ALBUMIN 3.9 g/dL (3.4-5.0); ANION GAP 8 mmol/L (5-15); CHLORIDE 108 mmol/L (98-107); CREATININE 0.76 mg/dL (0.55-1.02)
[2018-03-14 14:29] LABS: ALKALINE PHOSPHATASE 83 U/L (45-117); BILIRUBIN,TOTAL 0.6 mg/dL (0.2-1.0); TOTAL PROTEIN 7.6 g/dL (6.4-8.2)
== END | disposition home or self-care (01) ==
LOC: STAR 12:44
PROVIDERS: ATTEND Surgery
DX: Z01.818 Encounter for other preprocedural examination (principal); I44.4 Left anterior fascicular block
CPT/HCPCS: 36415; 80053; 93005

== ENCOUNTER → 2020-01-04 | Outpatient (CLI) | payer MEDICARE, OTHER ==
[~2020-01-04] MED LIST changes: +ACYC15OI17 IV; -ACYC15OI6 IV; +CALC0.25 PO; +CLON-364 PO; -CLON0.5T11 PO; +LISI1TAB39 PO; -LISI1TAB5 PO; +LOSA50TA14 PO; -LOSA50TA7 PO; +MIRT-34 PO; -MIRT15TA4 PO; +MULT-449 PO; -MULT1TAB60 PO; +REGADENOSON 0.4 MG/5 ML SYRINGE ONE
== END | disposition home or self-care (01) ==
LOC: CFH 12:21
PROVIDERS: ATTEND Internal Medicine Cardiovascular Disease
DX: Z01.810 Encounter for preprocedural cardiovascular examination (principal); I10 Essential (primary) hypertension; I47.9 Paroxysmal tachycardia, unspecified
CPT/HCPCS: 78452; 93017; A9502; J2785

== ENCOUNTER → 2020-03-06 | Outpatient (CLI) | payer MEDICARE, OTHER ==
[~2020-03-06] MED LIST changes: -BUPR150T6 PO; +BUPR150T7 PO; -REGADENOSON 0.4 MG/5 ML SYRINGE ONE
== END | disposition home or self-care (01) ==
LOC: CVU 13:34
PROVIDERS: ATTEND Internal Medicine Cardiovascular Disease
DX: Z01.810 Encounter for preprocedural cardiovascular examination (principal); I47.9 Paroxysmal tachycardia, unspecified; I47.1 Supraventricular tachycardia; I08.2 Rheumatic disorders of both aortic and tricuspid valves; I11.9 Hypertensive heart disease without heart failure
CPT/HCPCS: 93306